=== PATIENT | female | born 1945 | race Caucasian/White ===

== ENCOUNTER 2022-11-27 10:01 | Outpatient (OUT) | payer MEDICARE, BC, SELFPAY ==
--- NOTE | 2022-11-27 10:15 | MM_ITS ---
Patient: LUCY ALBRIGHT Exam Date: 11/27/2022 : 1945 Gender:F Ordering : Non-Staff Physician Admission #: [id number] Family : BAMBI RONDON Order #: [id number] CLICK HERE TO VIEW EXAM RADIOLOGY REPORT PROCEDURE: MM TOMOSYNTHESIS SCREENING RT COMPARISON: MG MAMM SCREEN RT 3D CAD, 11/18/2020. MG MAMM SCREEN RT 3D CAD, 11/24/2021. INDICATIONS: PERSONAL HISTORY OF MALIGNANY NEOPLASM OF BREAST Z85.3 Calculator Name NCI Breast Cancer Risk Assessment Tool 5 Year Breast Cancer Risk n/a% Lifetime Breast Cancer Risk n/a% Personal Breast Cancer Yes, 67 Personal Ovarian Cancer No Treatments mastectomy Family Cancers Sister with breast cancer at age 62; Son with kidney cancer at age 4. LOCATION: [facility] BREAST COMPOSITION: Heterogeneously dense,which may obscure small masses. FINDINGS: DIAGNOSTIC CATEGORY 2--BENIGN FINDING: RIGHT BREAST: No significant suspicious finding. Scattered benign-appearing nodules are present. Scattered benign-appearing calcifications are present. Scattered benign-appearing lymph nodes are present. RECOMMENDATIONS: ROUTINE MAMMOGRAM AND CLINICAL EVALUATION IN 12 MONTHS. PLEASE NOTE: A NORMAL MAMMOGRAM DOES NOT EXCLUDE THE POSSIBILITY OF BREAST CANCER. A CLINICALLY SUSPICIOUS PALPABLE LUMP SHOULD BE BIOPSIED. Dictated by: Vernon Goncalves MD on 11/27/2022 at 14:09 Approved by: Vernon Goncalves MD on 11/27/2022 at 14:10
== END 2022-11-27 10:02 | disposition home or self-care (01) ==
LOC: MAMMO 10:06
PROVIDERS: PCP Family Medicine
DX: Z12.31 Encounter for screening mammogram for malignant neoplasm of breast (principal); Z80.3 Family history of malignant neoplasm of breast; Z90.12 Acquired absence of left breast and nipple; Z80.51 Family history of malignant neoplasm of kidney
CPT/HCPCS: 77063; 77067

== ENCOUNTER 2022-12-25 08:50 | Outpatient (OUT) | payer MEDICARE, BC, SELFPAY ==
[2022-12-25 09:27] LABS: Estimated GFR (African America 46 (>=60); Estimated GFR (Non-African Ame 38 (>=60)
--- NOTE | 2022-12-25 11:20 | CT_ITS ---
The [address] [address] Patient Name: LUCY ALBRIGHT MRN: [id number] date: 1945 Sex: F Assigned Patient Location: LAB Current Patient Location: LAB Accession/Order Number: [id number] Exam Date: 12/25/2022 10:54 Report Date: 12/25/2022 12:21 At the request of: NON-STAFF PHYSICIAN Procedure: CT abdomen pelvis w con CT abdomen pelvis w con, 12/25/2022 10:54 AM EST INDICATION: Disorder Of Urinary System N39.9 COMPARISON: There is no appropriate prior study for comparison. TECHNIQUE: Axial images of the abdomen were obtained after the administration of IV and oral contrast. Multiplanar reformatted images were generated and reviewed as needed. Dose reduction techniques were achieved by using automated exposure control and/or adjustment of mA and/or kV according to patient size and/or use of iterative reconstruction technique. FINDINGS: There is status post bilateral hip arthroplasty causing streak artifact that decreases the sensitivity of this study. Lungs: The base of lungs is clear. No pleural effusion is noted. Liver and gallbladder: Small low-attenuation lesion within the liver likely a cyst or hemangioma. Otherwise, the liver and gallbladder are unremarkable. No enlargement of intra or extrahepatic biliary ducts. Genitourinary system: No hydronephrosis. No nephrolithiasis. Bilateral hypodense lesions within the kidneys, not fully characterized by this study. No abnormality of the visualized portion of urinary bladder is noted. Other solid abdominal organs: adrenal glands, pancreas, and spleen are unremarkable. Aorta: The infrarenal abdominal aorta is nonaneurysmal. Free fluid: There is no free fluid in the abdomen pelvis. Lymph node: No lymph node enlargement by size criteria is noted. Stomach and Bowel: No abnormality of the stomach is noted. There is colonic diverticulosis. No abnormality of small bowel is noted. Bone: There is no suspicious osteolytic or osteoblastic lesion. There is diffuse demineralization of bone. Lower lumbar spine and SI joint degenerative changes are noted. CT/CT abdomen pelvis w con IMPRESSION: No abnormality within the kidneys and the visualized portion of the urinary bladder (giving the limitation of the streak artifact) is noted to explain patient's symptoms. Electronically authenticated by: BROOKS KENDRICK Date: 12/25/2022 12:21
== END 2022-12-25 08:51 | disposition home or self-care (01) ==
LOC: LAB 08:50
PROVIDERS: PCP Family Medicine
DX: N39.9 Disorder of urinary system, unspecified (principal)
CPT/HCPCS: 36415; 74177; 82565; 84520; Q9967

== ENCOUNTER 2023-11-29 10:20 | Outpatient (OUT) | payer MEDICARE, SELFPAY ==
--- NOTE | 2023-11-29 10:31 | MM_ITS ---
Patient Name: LUCY ALBRIGHT MR#: [id number] : 1945 Exam Date: 11/29/2023 Ordering Doctor: DR SHARA OWENS RADIOLOGY REPORT PROCEDURE: MM TOMOSYNTHESIS SCREENING RT COMPARISON: MM TOMOSYNTHESIS SCREENING RT, 11/27/2022. MG MAMM SCREEN RT 3D CAD, 11/24/2021. MG MAMM SCREEN RT 3D CAD, 11/18/2020. INDICATIONS: Screening Calculator Name NCI Breast Cancer Risk Assessment Tool 5 Year Breast Cancer Risk n/a% Lifetime Breast Cancer Risk n/a% Personal Breast Cancer Yes, 67 Personal Ovarian Cancer No Treatments mastectomy Family Cancers Sister with breast cancer at age 62; Son with kidney cancer at age 4. LOCATION: [facility] BREAST COMPOSITION: The breasts are heterogeneously dense,which may obscure small masses. FINDINGS: DIAGNOSTIC CATEGORY 2--BENIGN FINDING: RIGHT BREAST: No significant suspicious finding. Scattered benign-appearing nodules are present. Scattered benign-appearing calcifications are present. No significant change has occurred. RECOMMENDATIONS: ROUTINE MAMMOGRAM AND CLINICAL EVALUATION IN 12 MONTHS. PLEASE NOTE: A NORMAL MAMMOGRAM DOES NOT EXCLUDE THE POSSIBILITY OF BREAST CANCER. A CLINICALLY SUSPICIOUS PALPABLE LUMP SHOULD BE BIOPSIED. Dictated by: Josesito Santiago M.D. on 11/29/2023 at 15:37 Approved by: Josesito Santiago M.D. on 11/29/2023 at 15:39
== END 2023-11-29 10:21 | disposition home or self-care (01) ==
LOC: MAMMO 10:24
PROVIDERS: PCP Family Medicine; Visit Provider Family Medicine
DX: Z12.31 Encounter for screening mammogram for malignant neoplasm of breast (principal); Z80.3 Family history of malignant neoplasm of breast; Z80.51 Family history of malignant neoplasm of kidney
CPT/HCPCS: 77063; 77067

== ENCOUNTER 2024-12-01 11:28 | Outpatient (OUT) | payer MEDICARE, SELFPAY ==
--- OUTSIDE RECORDS SUMMARY | 2024-12-01 11:34 | XMS_ITS | CCD ---
Author Organization [facility] Care Team Providers Care Residential Door Unit Installer Name Role Phone SHARA MOCK Unavailable Unavailable HYSHARA CLAROS Unavailable Unavailable DEFRANCE, SHARA Unavailable Unavailable FCO SANTIAGO Unavailable Unavailable SHARA MOCK Unavailable Unavailable Angelorance , Shara Choi Primary Care Provider [phone] Shara Montesinos MD Primary Care Provider Shara Montesinso MD Primary Care Provider Harshad Zapata MD Primary Care Provider [phone] HARSHAD ZAPATA Attending Unavailable SHARA MONTESINOS Referring Unavailable HARSHAD ZAPATA Primary Care Unavailable ANGELORANCESHARA Attending Unavailable DEFRANCESHARA Referring Unavailable DEFRANCE, SHARA Choi Primary Care Unavailable MAY KANG I Attending Unavailable DEFRANCESHARA Referring Unavailable DEFRANCE, SHARA Choi Primary Care Unavailable MAY KANG I Referring Unavailable DEFRANCE, SHARA Choi Primary Care Unavailable ALBERTO, ISA Admitting Unavailable ALBERTO, ISA Attending Unavailable DEFRANCE, SHARA Choi Primary Care Unavailable KARINA SALAZAR Attending Unavailable ANGELORANCESHARA Primary Care Unavailable ISA MERCADO Attending Unavailable SHARA MONTESINOS Referring Unavailable HARSHAD ZAPATA Primary Care Unavailable DEFRANCESHARA Referring Unavailable DEFRANCE, SHARA Choi Primary Care Unavailable SHARA EDWARD Referring Unavailable DEFRANCE, SHARA Choi Primary Care Unavailable SHARA EDWARD Attending Unavailable SHARA EDWARD Referring Unavailable DEFRANCE, SHARA Choi Primary Care Unavailable DEFRANCE, SHARA Choi Referring Unavailable DEFRANCE, SHARA Choi Primary Care Unavailable WILMAR SOLO Admitting Unavailable WILMAR SOLO Attending Unavailable ANGELORANCE, SHARA Choi Primary Care Unavailable SWATHI ROY Attending Unavailable ANGELORANCE, SHARA Choi Primary Care Unavailable ALBERTO, ISA Attending Unavailable ANGELORANCE, SHARA Choi Referring Unavailable DEFRANCE, SHARA Choi Primary Care Unavailable AGA HOANG Referring Unavailable DEFRANCE, SHARA Choi Primary Care Unavailable WILMAR SOLO Referring Unavailable DEFRANCE, SHARA Choi Primary Care Unavailable ISA MERCADO Attending Unavailable ISA MERCADO Referring Unavailable DEFRANCE, SHARA Choi Primary Care Unavailable DEFRANCE, SHARA Jimbo Referring Unavailable DEFRANCE, SHARA Jimbo Primary Care Unavailable HOANGAGA Referring Unavailable DEFRANCE, SHARA Jimbo Primary Care Unavailable HENRY SIMMONS Referring Unavailable BENNY, HARSHAD Primary Care Unavailable MIKELNADIA Attending Unavailable BENNY, HARSHAD Referring Unavailable BENNY, HARSHAD Primary Care Unavailable Medications Current Medications Medication Drug Class(es) Dates Sig (Normalized) Sig (Original) allopurinol 100 mg oral tablet (20 sources) Xanthine Oxidase Inhibitor Start: 01-02-2024 End: 06-30-2024 take 1 tablet by mouth once daily in the morning allopurinoL (ZYLOPRIM) 100 mg tablet Indications: Essential hypertension, benign , Diabetes mellitus without complication ([facility]) , Acquired hypothyroidism TAKE 1 TABLET BY MOUTH EVERY MORNING 90 tablet 1 06/30/2024 Active amoxicillin 500 mg oral capsule (1 source) Penicillin-class Antibacterial Start: 11-26-2024 take 1 capsule by mouth three times daily amoxicillin (AMOXIL) 500 mg capsule Take 1 capsule (500 mg total) by mouth 3 (three) times a day. 11/26/2024 Active apixaban 5 mg oral tablet (20 sources) Factor Xa Inhibitor Start: 08-15-2023 End: 08-15-2024 take 1 tablet by mouth at bedtime, then take 1 tablet by mouth twice daily at bedtime apixaban (ELIQUIS) 5 mg tablet Indications: Paroxysmal atrial fibrillation ([facility]) Take 1 tablet (5 mg total) by mouth in the morning and at bedtime. TAKE 1 TABLET BY MOUTH 2 TIMES A DAY (MORNING AND BEFORE BEDTIME) 180 tablet 1 08/15/2024 Active bisoprolol fumarate 5 mg oral tablet (20 sources) beta-Adrenergic Tone Start: 06-25-2023 End: 08-05-2024 take 1 tablet by mouth once daily in the morning, then take 1 tablet by mouth once daily at bedtime bisoprolol (ZEBETA) 5 mg tablet TAKE 1 TABLET BY MOUTH EVERY MORNING AND TAKE 1 TABLET BY MOUTH EVERY NIGHT AT BEDTIME 180 tablet 1 08/05/2024 Active blood-glucose meter misc (20 sources) Start: 03-15-2017 blood-glucose meter misc One Touch Glucometer, Use daily, Diagnosis: E11.9 1 each 03/15/2017 Active calcium carbonate 1500 mg / cholecalciferol 200 unt oral capsule (20 sources) Vitamin D take 2 capsules by mouth twice daily in the morning calcium carbonate-vitamin D3 600 mg calcium- 200 unit capsule Take 2 capsules by mouth in the morning. Takes 1200mg bid. Active take 2 capsules by mouth once da dennise calcium carbonate-vitamin D3 600 mg calcium- 200 unit capsule Take 2 capsules by mouth daily. Takes 1200mg bid Active cefadroxil 500 mg oral capsule (9 sources) Cephalosporin Antibacterial Start: 05-21-2024 End: 05-28-2024 take 1 capsule by mouth in the morning, then take 1 capsule by mouth at bedtime cefaDROXil (DURICEF) 500 mg capsule Take 1 capsule (500 mg total) by mouth in the morning and 1 capsule (500 mg total) before bedtime. Do all this for 7 days. 14 capsule 05/21/2024 05/28/2024 Active Start: 04-25-2024 End: 05-05-2024 take 1 capsule by mouth in the morning, then take 1 capsule by mouth at bedtime cefaDROXil (DURICEF) 500 mg capsule Take 1 capsule (500 mg total) by mouth in the morning and 1 capsule (500 mg total) before bedtime. Do all this for 10 days. 20 capsule 04/25/2024 05/05/2024 Active Start: 03-03-2024 End: 03-10-2024 take 1 capsule by mouth in the morning, then take 1 capsule by mouth at bedtime cefaDROXil (DURICEF) 500 mg capsule Take 1 capsule (500 mg total) by mouth in the morning and 1 capsule (500 mg total) before bedtime. Do all this for 7 days. 14 capsule 03/03/2024 03/10/2024 Active cefdinir 300 mg oral capsule (5 sources) Cephalosporin Antibacterial Start: 05-19-2024 End: 05-29-2024 take 1 capsule by mouth in the morning, then take 1 capsule by mouth at bedtime cefDINIR (OMNICEF) 300 mg capsule Take 1 capsule (300 mg total) by mouth in the morning and 1 capsule (300 mg total) before bedtime. Do all this for 10 days. 20 capsule 05/19/2024 05/29/2024 Active CRANBERRY JUICE ORAL (18 sources) CRANBERRY JUICE ORAL Take by mouth as needed. Active furosemide 20 mg oral tablet (20 sources) Loop Diuretic Start: 04-04-2023 End: 04-02-2024 take 1 tablet by mouth once daily furosemide (LASIX) 20 mg tablet Indications: Essential hypertension, benign Take 1 tablet (20 mg total) by mouth daily. 90 tablet 3 04/02/2024 Active glimepiride 1 mg oral tablet (20 sources) Sulfonylurea Start: 03-06-2023 take 1 tablet by mouth once daily before breakfast, then take 1 tablet by mouth once daily in the morning, then take 1 tablet by mouth once daily at bedtime glimepiride (AMARYL) 1 mg tablet Take 1 tablet (1 mg total) by mouth every morning before breakfast. TAKE ONE TABLET BY MOUTH EVERY MORNING AND TAKE ONE TABLET BY MOUTH EVERY NIGHT BEFORE BEDTIME 180 tablet 3 03/04/2024 Active levothyroxine sodium 0.125 mg oral tablet (20 sources) l-Thyroxine Start: 08-01-2023 End: 04-30-2024 take 1 tablet by mouth in the morning levothyroxine (SYNTHROID, LEVOTHROID) 125 MCG tablet Take 1 tablet (125 mcg total) by mouth in the morning. 90 tablet 2 04/30/2024 Active MAGNESIUM OXIDE/MAG AA CHELATE (MAGNESIUM, OXIDE/AA CHELATE, ORAL) (20 sources) take 400 mg by mouth in the morning MAGNESIUM OXIDE/MAG AA CHELATE (MAGNESIUM, OXIDE/AA CHELATE, ORAL) Take 400 mg by mouth in the morning and 400 mg before bedtime. Active take 400 mg by mouth twice daily MAGNESIUM OXIDE/MAG AA CHELATE (MAGNESIUM, OXIDE/AA CHELATE, ORAL) Take 400 mg by mouth 2 (two) times a day. Active metFORMIN hydrochloride 1000 mg oral tablet (20 sources) Biguanide Start: 03-06-2023 End: 03-10-2024 take 1 tablet by mouth in the morning, then take 1 tablet by mouth at mealtime, then take 1 tablet by mouth once daily in the morning, then take 1 tablet by mouth once daily at bedtime metFORMIN (GLUCOPHAGE) 1000 mg tablet Take 1 tablet (1,000 mg total) by mouth in the morning and 1 tablet (1,000 mg total) in the evening. Take with meals. TAKE ONE TABLET BY MOUTH EVERY MORNING AND TAKE ONE TABLET BY MOUTH EVERY NIGHT BEFORE BEDTIME. 180 tablet 3 03/10/2024 Active methenamine hippurate 1000 mg oral tablet (20 sources) Start: 04-25-2024 End: 04-20-2025 take 1 tablet by mouth at bedtime methenamine (HIPREX) 1 gram tablet Take 1 tablet (1 g total) by mouth in the morning and 1 tablet (1 g total) before bedtime. Do all this for 360 days. 180 tablet 3 04/25/2024 04/20/2025 Active MULTIVIT-MINERALS/MEHREEN JASON FUM (MULTI VITAMIN ORAL) (20 sources) Start: 08-15-2011 take 1 tablet by mouth in the morning MULTIVIT-MINERALS/F ERROUS FUM (MULTI VITAMIN ORAL) Take 1 tablet by mouth in the morning. 08/15/2011 Active Start: 08-15-[address] [facility] once daily MULTIVIT-MINERALS/FERROUS FUM (MULTI VITAMIN ORAL) Take 1 tablet by mouth daily. 08/15/2011 Active omeprazole 20 mg delayed release oral capsule (20 sources) Proton Pump Inhibitor Start: 11-29-2022 take 1 capsule by mouth once daily in the morning omeprazole (PriLOSEC) 20 mg capsule Indications: Gastroesophageal reflux disease without esophagitis TAKE ONE CAPSULE BY MOUTH EVERY MORNING 90 capsule 3 03/04/2024 Active pregabalin 100 mg oral capsule (20 sources) Start: 11-24-2024 take 1 capsule by mouth twice daily at bedtime pregabalin (LYRICA) 100 mg capsule Indications: Diabetic polyneuropathy associated with type 2 diabetes mellitus ([facility]-HCC) TAKE 1 CAPSULE BY MOUTH 2 TIMES A DAY IN THE MORNING AND BEFORE BEDTIME 60 capsule 11/24/2024 Active Start: 01-23-2024 End: 11-24-2024 take 1 capsule by mouth in the morning, then take 1 capsule by mouth at bedtime pregabalin (LYRICA) 100 mg capsule Indications: Diabetic polyneuropathy associated with type 2 diabetes mellitus ([facility]-HCC) Take 1 capsule (100 mg total) by mouth in the morning and 1 capsule (100 mg total) before bedtime. 60 capsule 10/27/2024 11/24/2024 Discontinued Completed/Discontinued Medications Medication Drug Class(es) Dates Sig (Normalized) Sig (Original) ferrous sulfate (20 sources) End: 06-25-2024 take 65 mg by mouth once daily FERROUS SULFATE ORAL Take 65 mg by mouth daily. 06/25/2024 Discontinued (Patient Stopped On Own) take 65 mg by mouth once daily F ERROUS SULFATE ORAL Take 65 mg by mouth daily. Active lisinopril 5 mg oral tablet (20 sources) Angiotensin Converting Enzyme Inhibitor Start: 04-11-2023 End: 08-26-2024 take 1 tablet by mouth once daily in the morning lisinopriL (PRINIVIL,ZESTRIL) 5 mg tablet TAKE 1 TABLET BY MOUTH EVERY MORNING 90 tablet 08/04/2024 08/26/2024 Discontinued Problems Active Problems Problem Classification Problem Date Documented Da te Episodic/Chronic Cardiac dysrhythmias (20 sources) Paroxysmal atrial fibrillation; Translations: [Paroxysmal atrial fibrillation] Onset: 6 01-30-2024 Chronic Diabetes mellitus with complications (20 sources) Polyneuropathy due to type 2 diabetes mellitus; Translations: [Type 2 diabetes mellitus with diabetic polyneuropathy] Onset: 8 02-27-2024 Chronic Esophageal disorders (20 sources) Gastroesophageal reflux disease; Translations: [Gastro-esophageal reflux disease without esophagitis] Onset: 1 11-01-2020 Chronic Essential hypertension (20 sources) Essential hypertension; Translations: [Essential (primary) hypertension] Onset: 8 08-20-2020 Chronic Other diseases of bladder and urethra (20 sources) Overactive bladder; Translations: [Overactive bladder] Onset: 1 10-31-2023 Chronic Other diseases of veins and lymphatics (20 sources) Venous hypertension; Translations: [Chronic venous hypertension (idiopathic) without complications of unspecified lower extremity] Onset: 2 05-23-2021 Chronic Other gastrointestinal disorders (4 sources) Diarrhea, unspecified; Translations: [DIARRHEA UNSPECIFIED] Onset: 8 Episodic Other lower respiratory disease (2 sources) Dyspnea on exertion; Translations: [Other forms of dyspnea] 11-27-2024 Episodic Other lower respiratory disease (1 source) Other forms of dyspnea; Translations: [Other forms of dyspnea] Onset: 5 Episodic Other nervous system disorders (20 sources) Mononeuropathy of lower limb; Translations: [Other specified mononeuropathies of bilateral lower limbs] Onset: 3 05-24-2023 Chronic Other nutritional; endocrine; and metabolic disorders (20 sources) Body mass index 30+ - obesity; Translations: [Obesity, unspecified] Onset: 1 05-20-2020 Chronic Other upper respiratory disease (20 sources) Rhinitis; Translations: [Chronic rhinitis] Onset: 2 05-30-2021 Chronic Prolapse of female genital organs (20 sources) Midline cystocele; Translations: [Cystocele, midline] Onset: 7 08-01-2019 Chronic Spondylosis; intervertebral disc disorders; other back problems (20 sources) Bilateral inflammation of sacroiliac joint; Translations: [Sacroiliitis, not elsewhere classified] Onset: 4 12-20-2023 Chronic Thyroid disorders (20 sources) Acquired hypothyroidism; Translations: [Hypothyroidism, unspecified] Onset: 8 03-15-2017 Chronic Unclassified (1 source) Ventricular tachycardia, unspecified; Translations: [Ventricular tachycardia, unspecified] Onset: 1 Unclassified (1 source) Annual Exam Onset: 4 Unclassified (1 source) i48.0 Onset: 5 Unclassified (1 source) Pre-op Exam Onset: 5 Urinary tract infections (1 source) Urinary tract infections Onset: 4 Past or Other Problems Problem Classification Problem Date Documented Da te Episodic/Chronic Diabetes mellitus without complication (20 sources) Diabetes mellitus without complication; Translations: [Type 2 diabetes mellitus without complications] Onset: 03-15-2017 Resolved: 03-15-2017 03-15-2017 Chronic Genitourinary symptoms and ill-defined conditions (2 sources) Scalding pain on urination ; Translations: [Dysuria] Onset: 03-03-2024 03-03-2024 Episodic Mood disorders (20 sources) Mood disorders Onset: 12-20-2023 Resolved: 06-25-2024 12-20-2023 Other and unspecified benign neoplasm (20 sources) History of polyp of colon; Translations: [History of colon polyps] Onset: 12-18-2018 12-18-2018 Episodic Other diseases of bladder and urethra (20 sources) Urethral stricture; Translations: [Unspecified urethral stricture, male, unspecified site] Onset: 04-05-2016 08-29-2019 Episodic Other gastrointestinal disorders (20 sources) Diarrhea; Translations: [Diarrhea, unspecified] Onset: 12-18-2018 12-18-2018 Episodic Other lower respiratory disease (20 sources) Dyspnea; Translations: [Shortness of breath] Onset: 08-20-2020 08-20-2020 Episodic Pancreatic disorders (not diabetes) (20 sources) Exocrine pancreatic insufficiency; Translations: [Exocrine pancreatic insufficiency] Onset: 01-28-2018 Resolved: 12-18-2018 12-18-2018 Episodic Spondylosis; intervertebral disc disorders; other back problems (20 sources) Disorder of sacrum; Translations: [Sacrococcygeal disorders, not elsewhere classified] Onset: 10-13-2021 08-24-2022 Episodic Unclassified (20 sources) Onset: 12-18-2022 12-18-2022 Urinary tract infections (20 sources) Recurrent urinary tract infection; Translations: [Urinary tract infection, site not specified] Onset: 04-05-2016 11-19-2023 Episodic Varicose veins of lower extremity (20 sources) Varicose veins of lower extremity; Translations: [Varicose veins of bilateral lower extremities with pain] Onset: 05-23-2021 05-23-2021 Episodic Results Test Name Value Interpretation Reference Range Facil ity POCT EKGOrdered By: Alcira Schumacher on 11-27-2024 [facility] POCT EKGon 08-26-2024 [facility] ACT Kaolin induced method (B ld)on 05-22-2024 [facility] CLOT TIME 279 sec High 96-152 [facility] Comment on above: Performed By: #### 8 0659-6 #### [facility] ([id number]) [address] [place] [address] [facility] CLOT TIME 348 sec High 96-152 [facility] Comment on above: Performed By: #### 8 0659-6 #### [facility] ([id number]) [address] [facility] [place] [address] [facility] CLOT TIME 354 sec High 96-152 [facility] Comment on above: Performed By: #### 8 0659-6 #### [facility] ([id number]) [address] [facility] [place] [address] [facility] CLOT TIME 333 sec High 96-152 [facility] Comment on above: Performed By: #### 8 0659-6 #### [facility] ([id number]) [address] [place] [address] [facility]CHRN CLOT TIME 138 sec Normal 96-152 [facility] Comment on above: Performed By: #### 8 0659-6 #### [facility] ([id number]) [address] [place] [address] Glucose Glucometer (BldC) [M ass/Vol]on 05-22-2024 Glucose [Mass/Vol] 126 mg/dL High 65-99 [facility] URINALYSISon 05-19-2024 Bilirubin Ql (U) Negative Normal NEG [facility] Comment on above: Performed By: #### B MP #### [facility] ([id number]) [address] [place] [address] BLOOD/HGB Small Abnormal NEG [facility] Comment on above: Performed By: #### B MP #### [facility] ([id number]) [address] [place] [address] Color (U) YELLOW Normal YELLOW [facility] Comment on above: Performed By: #### B MP #### [facility] ([id number]) [address] [place] [address] Glucose Ql (U) Negative Normal NEG [facility] Comment on above: Performed By: #### B MP #### [facility] ([id number]) [address] [place] [address] Ketones Ql (U) Negative Normal NEG [facility] Comment on above: Performed By: #### B MP #### [facility] ([id number]) [address] [place] [address] Leukocyte esterase Test strip Ql (U) Large Abnormal NEG [facility] Comment on above: Performed By: #### B MP #### [facility] ([id number]) [address] [place] [address] Nitrite Ql (U) Positive Abnormal NEG [facility] Comment on above: Performed By: #### B MP #### [facility] ([id number]) [address], [address] [place] [address] pH (U) 6.5 [pH] Normal 5.0-8.5 [facility] Comment on above: Performed By: #### B MP #### [facility] ([id number]) [address] [place] [address] Protein Ql (U) Trace Abnormal NEG [facility] Comment on above: Performed By: #### B MP #### [facility] ([id number]) [address] [place] [address] R.B.CELLS 36 /hpf High 0-5 [facility] Comment on above: Performed By: #### B MP #### [facility] ([id number]) [address] [place] [address] Specific gravity (U) [Rel density] 1.012 Normal 1.003-1.035 [facility] Comment on above: Performed By: #### B MP #### [facility] ([id number]) [address] [place] [address] TURBIDITY CLOUDY Abnormal CLEAR [facility] Comment on above: Performed By: #### B MP #### [facility] ([id number]) [address] [place] [address] Urobilinogen (U) [Mass/Vol] mg/dL Normal <1.1 [facility] Comment on above: Performed By: #### B MP #### [facility] ([id number]) [address] [place] [address] W.B.CELLS >720 High 0-5 [facility] Comment on above: Performed By: #### B MP #### [facility] ([id number]) [address] [address] WBC CLUMPS FEW Abnormal NONE [facility] Comment on above: Performed By: #### B MP #### [facility] ([id number]) [address] [place] [address] URINE CULTUREon 05-19-2024 Bacteria identified Cx Nom (U) CULTURE RESULTS >100,000 ORGANISMS/mL ESCHERICHIA COLI <10,000 ORGANISMS/mL NORMAL URO GENITAL RAHAT [ S = SUSCEPTIBLE R = RESISTANT I = INTERMEDIATE S-DO = Susceptible-dose dependent NS = Non-suscceptible NO = No Interpretation ] Organism: ESCHERICHIA COLI Antibiotic Interpretation JAVON Status AMPICILLIN S <=2 F AMP/SULBACTAM S <=2/1 F CEFAZOLIN (non urinary) S 2 F CEFAZOLIN (urinary) S 2 F CEFTRIAXONE S <=0.25 F CIPROFLOXACIN R >=4 F GENTAMICIN S <=1 F LEVOFLOXACIN R >=8 F NITROFURANTOIN S <=16 F PIPERACIL/TAZOBACTAM S <=4 F TRIMETH/SULFAMETHOXA ZOLE S <=1/19 F Susceptible [facility] Comment on above: Performed By: #### B MP #### [facility] ([id number]) [address] [place] [address] Urinalysison 05-19-2024 Bilirubin Ql (U) Negative Negative^Ne gati ve [facility] Color (U) YELLOW YELLOW^YELLOW [facility] Glucose (U) [Mass/Vol] Negative Negative^Negati ve mg/dL [facility] Hemoglobin Auto test strip Ql (U) Small Abnormal Negative^Negati ve [facility] Interpretation and review of laboratory results Abnormal [facility] Ketones (U) [Mass/Vol] Negative Negative^Negati ve mg/dL [facility] Leukocyte clumps LM Ql (Urine sed) FEW Abnormal NONE^NONE [facility] Leukocyte esterase Auto test strip Ql (U) Large Abnormal Negative^Negati ve [facility] Nitrite Auto test strip Ql (U) Positive Abnormal Negative^Negati ve [facility] pH (U) 6.5 [pH] 5.0 - 8.5 [facility] Protein (U) [Mass/Vol] Trace Abnormal Negative^Negati ve mg/dL [facility] RBC Auto (Urine sed) [#/Area] 36 High [facility] Specific gravity Refractometry automated (U) [Rel density] 1.012 1.003 - 1.035 [facility] Turbidity Ql (U) CLOUDY Abnormal CLEAR^CLEAR [facility] Urobilinogen Qn (U) NINF [facility] WBC Auto (Urine sed) [#/Area] High [facility] BASIC METABOLIC PANLon 05-15 Anion gap [Moles/Vol] 10 mmol/L Normal 5-15 [facility] Comment on above: Performed By: #### C SHO VENEGAS, #### [facility] ([id number]) [address] [place] [address] Calcium [Mass/Vol] 9.6 mg/dL Normal 8.5-10.5 [facility] Comment on above: Performed By: #### C SHO VENEGAS, 13784-5 #### [facility] ([id number]) [address] [place] [address] Chloride [Moles/Vol] 97 mmol/L Low 98-109 [facility] Comment on above: Performed By: #### C SHO VENEGAS, #### [facility] ([id number]) [address] [place] [address] CO2 [Moles/Vol] 30 mmol/L Normal 22-32 [facility] Comment on above: Performed By: #### C SHO VENEGAS, #### [facility] ([id number]) [address] [place] [address] Creatinine [Mass/Vol] 1.02 mg/dL High 0.40-1.00 [facility] Comment on above: Result Comment: METH OD TRACEABLE TO IDMS STANDARD Performed By: #### C SHO VENEGAS, #### [facility] ([id number]) [address] [place] [address] GFR/1.73 sq M.predicted among non-blacks MDRD (S/P/Bld) [Vol rate/Area] 57 mL/min/{1.73_m2} Low >59 [facility] Comment on above: Result Comment: Reported eGFR is based on the CKD-EPI 2020 equation that does not use a race coefficient. Performed By: #### C SHO VENEGAS, #### [facility] ([id number]) [address] [place] [address] Glucose [Mass/Vol] 159 mg/dL High 65-99 [facility] Comment on above: Performed By: #### C SHO VENEGAS, #### [facility] ([id number]) [address] [place] [address] Potassium [Moles/Vol] 4.1 mmol/L Normal 3.5-5.0 [facility] Comment on above: Performed By: #### C SHO VENEGAS, #### [facility] ([id number]) [address], [address] [place] [address] Sodium [Moles/Vol] 137 mmol/L Normal 134-146 [facility] Comment on above: Performed By: #### SHO Hernandez BCA, #### [facility] ([id number]) [address], [facility] [address] [place] [address] Urea nitrogen [Mass/Vol] 17 mg/dL Normal 5-27 [facility] Comment on above: Performed By: #### SHO Hernandez BCA, #### [facility] ([id number]) [address], [facility] [address] [place] [address] CBC AND AUTO DIFFon 05-16-19 25 ABSOLUTE BASOPHIL 0.1 X10E9/L Normal 0.0-0.2 [facility] Comment on above: Performed By: #### SHO Hernandez BCA, #### [facility] ([id number]) [address], [facility] [address] [place] [address] ABSOLUTE NEUTROPHIL 3.2 X10E9/L Normal 1.5-6.6 [facility] Comment on above: Performed By: #### SHO Hernandez BCA, #### [facility] ([id number]) [address] [address] [place] [address] Basophils/100 WBC (Bld) 1.1 % Normal [facility] Comment on above: Performed By: #### SHO Hernandez BCA, #### [facility] ([id number]) [address] [address] [place] [address] Eosinophils (Bld) [#/Vol] 0.1 10*3/uL Normal 0.0-0.4 [facility] Comment on above: Performed By: #### SHO Hernandez BCA, #### [facility] ([id number]) [address], [address] [place] [address] Eosinophils/100 WBC (Bld) 3.0 % Normal [facility] Comment on above: Performed By: #### Mary VENEGAS [facility], #### [facility] ([id number]) [address], [address] [place] [address] Erythrocyte distribution width (RBC) [Ratio] 14.2 % Normal 11.5-15.0 [facility] Comment on above: Performed By: #### SHO Hernandez BCA, #### [facility] ([id number]) [address], [address] [place] [address] Hematocrit (Bld) [Volume fraction] 39.0 % Normal 35-47 [facility] Comment on above: Performed By: #### SHO Hernandez BCA, #### [facility] ([id number]) [address], [address] [place] [address] Hemoglobin (Bld) [Mass/Vol] 12.9 g/dL Normal 11.7-15.5 [facility] Comment on above: Performed By: #### SHO Hernandez BCA, #### [facility] ([id number]) [address], [address] [place] [address] Lymphocytes (Bld) [#/Vol] 0.9 10*3/uL Low 1.0-3.5 [facility] Comment on above: Performed By: #### SHO Hernandez BCA, #### [facility] ([id number]) [address], [address] [place] [address] Lymphocytes/100 WBC (Bld) 19.7 % Normal [facility] Comment on above: Performed By: #### SHO Hernandez BCA, #### [facility] ([id number]) [address], [address] [place] [address] MCH (RBC) [Entitic mass] 31.2 pg Normal 27-34 [facility] Comment on above: Performed By: #### C RUBI [facility], #### [facility] ([id number]) [address], [address] [place] [address] MCHC (RBC) [Mass/Vol] 33.2 g/dL Normal 32-36 [facility] Comment on above: Performed By: #### Mary VENEGAS, BMP, #### [facility] ([id number]) [address], [address] [place] [address] MCV (RBC) [Entitic vol] 94 fL Normal 80-100 [facility] Comment on above: Performed By: #### Mary VENEGAS, BMP, #### [facility] ([id number]) [address], [address] [place] [address] Monocytes (Bld) [#/Vol] 0.4 10*3/uL Normal 0-0.9 [facility] Comment on above: Performed By: #### Mary VENEGAS, [facility], #### [facility] ([id number]) [address], [address] [place] [address] Monocytes/100 WBC (Bld) 8.8 % Normal [facility] Comment on above: Performed By: #### Mary VENEGAS, BMP, #### [facility] ([id number]) [address], [address] [place] [address] Neutrophils/100 WBC (Bld) 67.4 % Normal [facility] Comment on above: Performed By: #### Mary VENEGAS, BMP, #### [facility] ([id number]) [address], [address] [place] [address] Platelet mean volume (Bld) [Entitic vol] 10.8 fL Normal 7-12 [facility] Comment on above: Performed By: #### Mary VENEGAS, BMP, #### [facility] ([id number]) [address], [address] [place] [address] Platelets (Bld) [#/Vol] 175 10*3/uL Normal 150-450 [facility] Comment on above: Performed By: #### SHO Hernandez BCA, 39286-2 #### [facility] ([id number]) [address], [facility] [address] [place] [address] RBC COUNT 4.14 X10E12/L Normal 3.80-5.20 [facility] Comment on above: Performed By: #### SHO Hernandez BCA, 16646-4 #### [facility] ([id number]) [address], [facility] [address] [place] [address] WBC (Bld) [#/Vol] 4.7 10*3/uL Normal 4.0-11.0 [facility] Comment on above: Performed By: #### SHO Hernandez BCA, 74349-6 #### [facility] ([id number]) [address], [address] [place] [address] MAGNESIUMon 05-15-2024 Magnesium [Mass/Vol] 1.4 mg/dL Low 1.8-2.6 [facility] Comment on above: Performed By: #### SHO Hernandez BCA, 59601-0 #### [facility] ([id number]) [address], [facility] [address] [place] [address] URINE CULTUREon 04-22-2024 Bacteria identified Cx Nom (U) CULTURE RESULTS >100,000 ORGANISMS/mL ESCHERICHIA COLI [ S = SUSCEPTIBLE R = RESISTANT I = INTERMEDIATE S-DO = Susceptible-dose dependent NS = Non-suscceptible NO = No Interpretation ] Organism: ESCHERICHIA COLI Antibiotic Interpretation JAVON Status AMPICILLIN S <=2 F AMP/SULBACTAM S <=2/1 F CEFAZOLIN S <=4 F CEFTRIAXONE S <=0.25 F CIPROFLOXACIN R >=4 F GENTAMICIN S <=1 F LEVOFLOXACIN R >=8 F NITROFURANTOIN S <=16 F PIPERACIL/TAZOBACTAM S <=4 F TOBRAMYCIN S <=1 F TRIMETH/SULFAMETHOXA ZOLE S <=1/19 F Susceptible [facility] Comment on above: Performed By: #### 6 30-4 #### [facility] ([id number]) [address] [place] [address], [address] [place] [address] URINE CULTUREon 03-03-2024 Bacteria identified Cx Nom (U) CULTURE RESULTS >100,000 ORGANISMS/mL ESCHERICHIA COLI [ S = SUSCEPTIBLE R = RESISTANT I = INTERMEDIATE S-DO = Susceptible-dose dependent NS = Non-suscceptible NO = No Interpretation ] Organism: ESCHERICHIA COLI Antibiotic Interpretation JAVON Status AMPICILLIN S <=2 F AMP/SULBACTAM S <=2/1 F CEFAZOLIN S <=4 F CEFTRIAXONE S <=0.25 F CIPROFLOXACIN R >=4 F GENTAMICIN S <=1 F LEVOFLOXACIN R >=8 F NITROFURANTOIN S <=16 F PIPERACIL/TAZOBACTAM S <=4 F TOBRAMYCIN S <=1 F TRIMETH/SULFAMETHOXA ZOLE S <=1/19 F Susceptible [facility] Comment on above: Performed By: #### 6 30-4 #### [facility] ([id number]) [facility], [address] [place] [address] HGB A1C (GLYCO-HGB)on 2023 Glucose [Mass/Vol] 140 mg/dL Normal [facility] Comment on above: Performed By: #### H A1C #### [facility] ([id number]) [address] [place] [address], [address] [place] [address] HbA1c (Bld) [Mass fraction] 6.5 % High 4.4-5.6 [facility] Comment on above: Result Comment: NOTE ADA Guidelines Result HgbA1c Normal : less than 5.7 % Prediabetes : 5.7 % to 6.4 % Diabetes : > 6.4 % Use with caution in patients with abnormal hemoglobin variants as the half-life of red blood cells and in vivo glycation rates are affected. Performed By: #### H A1C #### [facility] ([id number]) [address], [address] [place] [address] BASIC METABOLIC PANLon 12-17 Anion gap [Moles/Vol] 10 mmol/L Normal 5-15 [facility] Comment on above: Performed By: #### B MP #### [facility] ([id number]) [address], [address] [place] [address] Calcium [Mass/Vol] 9.4 mg/dL Normal 8.5-10.5 [facility] Comment on above: Performed By: #### B MP #### [facility] ([id number]) [address], [address] [place] [address] Chloride [Moles/Vol] 99 mmol/L Normal 98-109 [facility] Comment on above: Performed By: #### B MP #### [facility] ([id number]) [address], [address] [place] [address] CO2 [Moles/Vol] 28 mmol/L Normal 22-32 [facility] Comment on above: Performed By: #### B MP #### [facility] ([id number]) [address], [address] [place] [address] Creatinine [Mass/Vol] 1.13 mg/dL High 0.40-1.00 [facility] Comment on above: Result Comment: METH OD TRACEABLE TO IDMS STANDARD Performed By: #### B MP #### [facility] ([id number]) [address], [address] [place] [address] GFR/1.73 sq M.predicted among non-blacks MDRD (S/P/Bld) [Vol rate/Area] 50 mL/min/{1.73_m2} Low >59 [facility] Comment on above: Result Comment: Reported eGFR is based on the CKD-EPI 2020 equation that does not use a race coefficient. Performed By: #### B MP #### [facility] ([id number]) [address], [address] [place] [address] Glucose [Mass/Vol] 265 mg/dL High 65-99 [facility] Comment on above: Performed By: #### B MP #### [facility] ([id number]) [address], [address] [place] [address] Potassium [Moles/Vol] 4.3 mmol/L Normal 3.5-5.0 [facility] Comment on above: Performed By: #### B MP #### [facility] ([id number]) [address], [address] [place] [address] Sodium [Moles/Vol] 137 mmol/L Normal 134-146 [facility] Comment on above: Performed By: #### B MP #### [facility] ([id number]) [address], [address] [place] [address] Urea nitrogen [Mass/Vol] 18 mg/dL Normal 5-27 [facility] Comment on above: Performed By: #### B MP #### [facility] ([id number]) [address], [address] [place] [address] URINALYSISon 12-18-2023 Bilirubin Ql (U) Negative Normal NEG [facility] Comment on above: Performed By: #### U A #### [facility] ([id number]) [address], [address] [place] [address] BLOOD/HGB Negative Normal NEG [facility] Comment on above: Performed By: #### U A #### [facility] ([id number]) [address], [address] [place] [address] Color (U) YELLOW Normal YELLOW [facility] Comment on above: Performed By: #### U A #### [facility] ([id number]) [address], [address] [place] [address] Glucose Ql (U) Negative Normal NEG [facility] Comment on above: Performed By: #### U A #### [facility] ([id number]) [address], [address] [place] [address] Ketones Ql (U) Negative Normal NEG [facility] Comment on above: Performed By: #### U A #### [facility] ([id number]) [address], [address] [place] [address] Leukocyte esterase Test strip Ql (U) Negative Normal NEG [facility] Comment on above: Performed By: #### U A #### [facility] ([id number]) [address], [address] [place] [address] Nitrite Ql (U) Negative Normal NEG [facility] Comment on above: Performed By: #### U A #### [facility] ([id number]) [address], [address] [place] [address] pH (U) 6.5 [pH] Normal 5.0-8.5 [facility] Comment on above: Performed By: #### U A #### [facility] ([id number]) [address], [address] [place] [address] Protein Ql (U) Negative Normal NEG [facility] Comment on above: Performed By: #### U A #### [facility] ([id number]) [address], [address] [place] [address] Specific gravity (U) [Rel density] 1.009 Normal 1.003-1.035 [facility] Comment on above: Performed By: #### U A #### [facility] ([id number]) [address], [address] [place] [address] TURBIDITY CLEAR Normal CLEAR [facility] Comment on above: Performed By: #### U A #### [facility] ([id number]) [address], [address] [place] [address] Urobilinogen (U) [Mass/Vol] mg/dL Normal <1.1 [facility] Comment on above: Performed By: #### U A #### [facility] ([id number]) [address] [place] [address] URINE CULTUREon 12-18-2023 Bacteria identified Cx Nom (U) CULTURE RESULTS <10,000 ORGANISMS/ML NORMAL URO GENITAL RAHAT Normal [facility] Comment on above: Performed By: #### 6 30-4 #### [facility] ([id number]) [address], [address] [place] [address] XR CHEST 2 VWSon 12-18-2023 XR CHEST 2 VWS XR CHEST 2 VWS XR CHEST 2 VWS Chest 2 views History: Paroxysmal atrial fibrillation ([facility]); Essential hypertension; Preop examination Comparison: October 18, 2020 Impression: * No focal consolidation or pleural fluid. Grossly I cannot identify any mediastinal or hilar mass. No acute findings. * Moderate cardiomegaly similar to prior examination Finalized by Ernesto Bright MD on 12/18/2023 3:20 PM Normal [facility] URINE CULTUREon 10-31-2023 Bacteria identified Cx Nom (U) CULTURE RESULTS >100,000 ORGANISMS/mL ESCHERICHIA COLI [ S = SUSCEPTIBLE R = RESISTANT I = INTERMEDIATE S-DO = Susceptible-dose dependent NS = Non-suscceptible NO = No Interpretation ] Organism: ESCHERICHIA COLI Antibiotic Interpretation JAVON Status AMPICILLIN S 4 F AMP/SULBACTAM S <=2/1 F CEFAZOLIN S <=4 F CEFTRIAXONE S <=0.25 F CIPROFLOXACIN R >=4 F GENTAMICIN S <=1 F LEVOFLOXACIN R >=8 F NITROFURANTOIN S <=16 F PIPERACIL/TAZOBACTAM S <=4 F TOBRAMYCIN S <=1 F TRIMETH/SULFAMETHOXA ZOLE S <=/19 F Susceptible [facility] Comment on above: Performed By: #### 6 30-4 #### [facility] ([id number]) [address] [place] [address] BUNon 12-17-2017 Urea nitrogen mass conc 17.0 mg/dL Normal 7.0-17.0 [facility] Comment on above: Performed By: #### C MARILEE, BUN ####[facility] [id number] [place] CREATININEon 12-17-2017 Creatinine mass conc 1.24 mg/dL Critically high 0.52-1.04 [facility] Comment on above: Performed By: #### C MARILEE, BUN ####[facility] [id number] [place] EGFR-AF BAHRAINI 52 mL/min/1.73m2 Critically low >=60 [facility] Comment on above: Performed By: #### C MARILEE, BUN ####[facility] [id number] [place] EGFR-NON AF BAHRAINI 43 mL/min/1.73m2 Critically low >=60 [facility] Comment on above: Performed By: #### C MARILEE, BUN ####[facility] [id number] ABDOMEN W CONon 8 CT ABDOMEN W CON [address] [place] [address] Patient: AINSLEY ALBRIGHT Exam Date: 12/17/2017DOB: 1945 Gender:F : SHARA MOCK Admission #: [id number] : DR SHARA MONTESINOS Order #: [id number] HERE TO VIEW EXAM RADIOLOGY REPORT PROCEDURE: CT ABDOMEN WITH CONTRAST COMPARISON: None. INDICATIONS: Chronic diarrhea TECHNIQUE: CT images were created with IV contrast. Axial, Coronal, and Sagittal images. DOSE: 440 mGycm; 100 cc Omnipaque 300 FINDINGS: LUNG BASES: No visible pulmonary or pleural disease. LIVER: No enlargement, atrophy, abnormal density, or significant focal lesion. BILIARY: No visible dilatation or calcification. PANCREAS: No lesion, fluid collection, ductal dilatation. SPLEEN: No enlargement or focal lesion. ADRENALS: No mass or enlargement. KIDNEYS: Small renal cysts. No mass, obstruction, or calcification. BOWEL/MESENTERY: No visible mass, obstruction, or bowel wall thickening. Normal appendix.AORTA/VASCU LAR: No aneurysm or dissection. RETROPERITONEUM: No mass or adenopathy. ABDOMINAL WALL: No mass or hernia. BONES: L4-5, L5-S1 marked degenerative disc disease. No bony lesion or fracture. OTHER: Negative. CONCLUSION: 1. Limited evaluation of the bowel as only the abdomen was included on today's study. No visible stomach or bowel abnormality. Dictated by: Fco Santiago M.D. on 12/17/2017 at 15:50 Approved by: Fco Santiago M.D. on 12/17/2017 at 15:57 Normal [facility] Vital Signs Date Time Vital Sign Value Performing Clinician Faci lity 11-27-2024 09:52-0400 Body height 176.5 cm Nadia Morin MD Work Phone: [facility] 11-27-2024 09:52-0400 Body mass index (BMI) [Ratio] 26.94 kg/m2 Nadia Morin MD Work Phone: [facility] 11-27-2024 09:52-0400 Body weight 83.92 kg Nadia Morin MD Work Phone: [facility] 11-27-2024 09:52-0400 Diastolic blood pressure 66 mm[Hg] Nadia Morin MD Work Phone: [facility] 11-27-2024 09:52-0400 Heart rate 50 /min Nadia Morin MD Work Phone: [facility] 11-27-2024 09:52-0400 Systolic blood pressure 128 mm[Hg] Nadia Morin MD Work Phone: [facility] 08-26-2024 15:39-0400 Body height 176.5 cm Isa Mercado MD Work Phone: [facility] [employer] [facility] 08-26-2024 15:39-0400 Body mass index (BMI) [Ratio] 27.4 kg/m2 Isa Mercado MD Work Phone: [facility] 08-26-2024 15:39-0400 Body weight 85.37 kg Isa Mercado MD Work Phone: [facility] 08-26-2024 15:39-0400 Diastolic blood pressure 50 mm[Hg] Isa Mercado MD Work Phone: [facility] 08-26-2024 15:39-0400 Heart rate 59 /min Isa Mercado MD Work Phone: [facility] 08-26-2024 15:39-0400 SaO2% (BldA) [Mass fraction] 98 % Isa Mercado MD Work Phone: [facility] 08-26-2024 15:39-0400 Systolic blood pressure 98 mm[Hg] Isa Mercado MD Work Phone: [facility] 06-25-2024 12:59-0400 Body mass index (BMI) [Ratio] 28.09 kg/m2 Harshad Zapata MD Work Phone: [facility] 06-25-2024 12:59-0400 Body weight 87.54 kg Harshad Zapata MD Work Phone: [facility] 06-25-2024 12:59-0400 Diastolic blood pressure 62 mm[Hg] Harshad Zapata MD Work Phone: [facility] 06-25-2024 12:59-0400 Heart rate 65 /min Harshad Zapata MD Work Phone: [facility] 06-25-2024 12:59-0400 Respiratory rate 18 /min Harshad Zapata MD Work Phone: [facility] 06-25-2024 12:59-0400 SaO2% (BldA) [Mass fraction] 97 % Harshad Zapata MD Work Phone: [facility] 06-25-2024 12:59-0400 Systolic blood pressure 114 mm[Hg] Harshad Zapata MD Work Phone: [facility] Encounters Encounter Date Encounter Type Care Provider Facility Start: 11-27-2024 End: 11-27-2024 Office outpatient visit 25 minutes Nadia Morin MD Work Phone: [facility] Comment on above: Paroxysmal atrial fi brillation (CMS-HCC) (Primary Dx); Exertional dyspnea Start: 11-27-2024 End: 11-27-2024 ambulatory [facility] Start: 11-23-2024 End: 11-24-2024 Refill Harshad Zapata MD Work Phone: [facility] Comment on above: Diabetic polyneuropa thy associated with type 2 diabetes mellitus ([facility]) Start: 10-27-2024 End: 10-27-2024 Refill May Capellan LPN [facility] Comment on above: Diabetic polyneuropa thy associated with type 2 diabetes mellitus (CMS-HCC) Start: 10-13-2024 End: 10-13-2024 Telephone encounter May CUELLAR Work Phone: [facility] Start: 10-13-2024 ambulatory HENRYFATMATA SIMMONS [facility] Start: 09-24-2024 End: 09-24-2024 Refill May Capellan LPN [facility] Comment on above: Diabetic polyneuropa thy associated with type 2 diabetes mellitus ([facility]) Start: 08-26-2024 End: 08-26-2024 Office outpatient visit 15 minutes Isa Mercado MD Work Phone: [facility] Comment on above: Paroxysmal atrial fi brillation (CMS-HCC) (Primary Dx) Start: 08-26-2024 End: 08-27-2024 ambulatory [facility] Start: 08-25-2024 End: 08-25-2024 Orders Only Judy Monzon OPHTHALMIC MEDICAL TECHNOLOGIST-LOADING UNIT OPERATOR [employer] Work Phone: [facility] Comment on above: Diabetic polyneuropa thy associated with type 2 diabetes mellitus ([facility]) Start: 08-15-2024 End: 08-15-2024 Refill Nan Nieves RN [facility] Comment on above: Med Refill Start: 08-03-2024 End: 08-05-2024 Refill Shara Montesinos MD Work Phone: [facility] Comment on above: Med Refill Start: 07-28-2024 End: 07-28-2024 Refill Shauna Mcdaniels CMA [facility] Comment on above: Diabetic polyneuropa thy associated with type 2 diabetes mellitus ([facility]) Start: 06-29-2024 End: 06-30-2024 Refill Shara Montesinos MD Work Phone: [facility] Comment on above: Essential hypertensi on, benign; Diabetes mellitus without complication ([facility]); Acquired hypothyroidism Start: 06-25-2024 End: 06-25-2024 Office outpatient visit 25 minutes Harshad Zapata MD Work Phone: [facility] Comment on above: Diabetic polyneuropa thy associated with type 2 diabetes mellitus ([facility]) (Primary Dx); Paroxysmal atrial fibrillation ([facility]); Essential hypertension; Gastroesophageal reflux disease without esophagitis; Acquired hypothyroidism; Ventricular tachycardia ([facility]) Start: 06-25-2024 End: 06-25-2024 ambulatory HARSHAD ZAPATA [facility] Start: 05-27-2024 End: 05-27-2024 Refill May Capellan LPN [facility] Comment on above: Diabetic polyneuropa thy associated with type 2 diabetes mellitus ([facility]) Start: 05-22-2024 End: 05-22-2024 ambulatory KARINA SALAZAR [facility] Start: 05-22-2024 End: 05-22-2024 ambulatory ISA MERCADO [facility] Start: 05-21-2024 End: 05-21-2024 Orders Only May CUELLAR Work Phone: [facility] Start: 05-19-2024 End: 05-19-2024 Telephone encounter Elisha Kwok RN [facility] Comment on above: methenamine Start: 05-19-2024 End: 05-19-2024 ambulatory AGA HOANG [facility] Start: 05-15-2024 End: 05-15-2024 ambulatory SHARA MONTESINOS [facility] Start: 05-13-2024 End: 05-13-2024 Refill Wilmar Navas OPHTHALMIC MEDICAL TECHNOLOGIST-LOADING UNIT OPERATOR [employer] Work Phone: [facility] Comment on above: Med Refill Start: 05-12-2024 End: 05-12-2024 ambulatory ISA MERCADO [facility] Start: 05-06-2024 End: 05-06-2024 Refill Shara Montesinos MD Work Phone: [facility] Start: 04-30-2024 End: 04-30-2024 Refill May Capellan LPN [facility] Start: 04-28-2024 End: 04-28-2024 Refill May Capellan LPN [facility] Comment on above: Diabetic polyneuropa thy associated with type 2 diabetes mellitus ([facility]) Start: 04-25-2024 End: 04-25-2024 Orders Only Aga Hoang OPHTHALMIC MEDICAL TECHNOLOGIST-LOADING UNIT OPERATOR [place] Work Phone: [facility] Start: 04-22-2024 End: 04-22-2024 ambulatory WILMAR SOLO [facility] Start: 04-22-2024 End: 04-22-2024 Telephone encounter Fransisco Rodriguez CMA [facility] Start: 04-10-2024 End: 04-10-2024 [facility] Start: 04-02-2024 End: 04-02-2024 Refill May Capellan LPN [facility] Comment on above: Essential hypertensi on, benign Start: 03-25-2024 End: 03-25-2024 [facility] Comment on above: Diabetic polyneuropa thy associated with type 2 diabetes mellitus ([facility]) Start: 03-10-2024 End: 03-10-2024 Refill Shara Montesinos MD Work Phone: [facility] Start: 03-03-2024 End: 03-03-2024 Orders Only May Mccormick [facility] Comment on above: Burning with urinati on (Primary Dx) Start: 02-27-2024 End: 02-27-2024 Refill Shauna Mcdaniels CMA [facility] Comment on above: Diabetic polyneuropa thy associated with type 2 diabetes mellitus ([facility]) Start: 01-30-2024 End: 01-30-2024 ambulatory ISA MERCADO [facility] Start: 01-01-2024 End: 01-01-2024 Evaluation and management of inpatient SWATHI ROY [facility] Start: 01-01-2024 End: 01-01-2024 Evaluation and management of inpatient WILMAR SOLO [facility] Start: 12-20-2023 End: 12-20-2023 ambulatory [facility] Start: 12-20-2023 End: 12-20-2023 ambulatory [facility] Start: 12-20-2023 Encounter for genera l adult medical examination without abnormal findings [facility] Start: 12-18-2023 End: 12-18-2023 ambulatory SHARA EDWARD [facility] Start: 12-18-2023 End: 12-18-2023 ambulatory [facility] Start: 12-18-2023 Encounter for other preprocedural examination [facility] Start: 11-01-2023 End: 11-01-2023 ambulatory MAY KANG [facility] Start: 10-31-2023 End: 10-31-2023 ambulatory MAY KANG [facility] Start: 12-17-2017 End: 12-18-2017 Patient encounter procedure SHARA MOCK Facility:H1 Procedures Date Procedure Procedure Detail Performing Clinician Start: 11-27-2024 Ecg routine ecg w/le ast 12 lds w/i&r Nadia Morin MD Work Phone: Start: 08-26-2024 Ecg routine ecg w/le ast 12 lds w/i&r Isa Mercado MD Work Phone: Start: 08-26-2024 Follow-up visit Follow-up ISA MERCADO Start: 06-25-2024 Follow-up visit Follow-up HARSHAD GARCIAS Start: 06-25-2024 Adult depression screening assessment Harshad Zapata MD Work Phone: Start: 01-30-2024 Follow-up visit Follow-up ISA MERCADO Start: 12-20-2023 Adult depression screening assessment Shauna Mcdaniels CMA Plan of Treatment Date Care Activity Detail Author Start: 11-27-2025 Tobacco Screening Tobacco Screening [facility] Start: 08-26-2025 Tobacco Screening Tobacco Screening [facility] Start: 06-25-2025 Depression Screening [facility] Start: 06-25-2025 Tobacco Screening Tobacco Screening [facility] Start: 05-22-2025 Tobacco Screening Tobacco Screening [facility] Start: 01-29-2025 Tobacco Screening Tobacco Screening [facility] Start: 12-30-2024 End: 12-30-2024 Patient encounter procedure 12/30/2024 10:30 AM EST Office Visit [facility] [address] [place] [id number] Harhsad Zapata MD [address] [place] [id number] [facility] Start: 12-23-2024 End: 12-23-2024 Patient encounter procedure 12/23/2024 1:30 PM EST Office Visit [facility] [address] [place] [id number] Harshad Zapata MD [facility] [place] [address] [facility] Start: 12-19-2024 Depression Screening Depression Screening [facility] Start: 12-19-2024 Fall Risk Screening Fall Risk Screening [facility] Start: 12-19-2024 Medicare Annual Wellness Visit Medicare Annual Wellness Visit [facility] Start: 11-27-2024 End: 11-27-2025 NM Heart Perfusion W adenosine and W radionuclide IV Nuc stress Lexiscan/Exercise Cardiac Services Routine Exertional dyspnea Expected: 11/27/2024, Expires: 11/27/2025 [facility] Work Phone: Comment on above: Expected: 11/27/2024, Expires: Start: 10-20-2024 COVID-19 Vaccine ( season) COVID-19 Vaccine ( season) [facility] Start: 10-20-2024 Influenza vaccination Influenza Vaccine [facility] Start: 08-26-2024 End: 08-26-2024 Patient encounter procedure 08/26/2024 4:00 PM EDT Office Visit [facility] [address] [place] [phone] Isa Mercado MD [address] [place], [place] [id number] [facility] Start: 08-01-2024 COVID-19 Vaccine ( season) COVID-19 Vaccine ( season) [facility] Start: 06-25-2024 End: 06-25-2024 Patient encounter procedure 06/25/2024 1:00 PM EDT Office Visit [facility] [address] [place] [id number] Harshad Zapata MD [address] [place] [address] [facility] Start: 05-22-2024 End: 05-22-2024 Admission to same day surgery center 05/22/2024 10:30 AM EDT - 05/22/2024 1:30 PM EDT Surgery [facility] [address] [facility] [place] [phone] Isa Mercado MD [address] [place] [address] Afib ablation - PFA, OSMAR, ICE [59253 (CPT )] [facility] Comment on above: Afib ablation - PFA, OSMAR, ICE [36621 (CP T )] Start: 05-22-2024 Subsequent hospital visit by physician 05/22/2024 10:30 AM EDT Hospital Encounter [facility] [address] [place] [phone] Isa Mercado MD [address] [place] [address] Paroxysmal atrial fibrillation ([facility]) [facility] Comment on above: Paroxysmal atrial fibrillation ([facility]) Start: 05-19-2024 End: 05-19-2025 Bacteria identified in Urine by Culture [facility] Work Phone: Comment on above: Expected: 05/19/2024, Expires: Start: 05-15-2024 End: 05-15-2024 Patient encounter procedure 05/15/2024 10:30 AM EDT Appointment [facility] [address] [address] [facility] Start: 05-12-2024 End: 05-12-2024 Patient encounter procedure 05/12/2024 10:30 AM EDT Appointment [facility] [address] [place] [address] Isa Mercado MD [address] [place] [address] [facility] Start: 04-14-2024 End: 04-14-2024 Patient encounter procedure 04/14/2024 10:30 AM EST Appointment [facility] [address] [place] [address] Isa Mercado MD [address] [place] [address] [facility] Start: 10-21-2023 COVID-19 Vaccine ( season) COVID-19 Vaccine ( season) [facility] Start: 1996 Administration of varicella zoster vaccine Zoster (Shingles) Vaccine (1 of 2) [facility] Start: 1965 DTaP,Tdap and Td Vaccines (1 - Tdap) DTaP,Tdap and Td Vaccines (1 - Tdap) [facility] End: 03-03-2025 Bacteria identified in Urine by Culture Urine culture Microbiology Routine Burning with urination 1 Occurrences starting 03/03/2024 until 03/03/2025 [facility] Work Phone: Comment on above: 1 Occurrences starting 03/03/2024 until 03/03/2025 End: 04-22-2025 Bacteria identified in Urine by Culture Urine culture Microbiology Routine Recurrent UTI 1 Occurrences starting 04/22/2024 until 04/22/2025 [facility] Work Phone: Comment on above: 1 Occurrences starting 04/22/2024 until 04/22/2025 Bacteria identified in Urine by Culture Urine culture Microbiology Routine Recurrent UTI 04/22/2024 3:27 PM EST [facility] Immunizations Immunization Date Immunization Notes Care Provider Fa cility 01-11-2024 influenza virus vacc ine, unspecified formulation May CUELLAR Work Phone: [facility] 12-01-2022 Influenza, High-dose , Quadrivalent Shauna Mcdaniels [facility] 12-12-2021 Influenza, High-dose , Quadrivalent Shauna Mcdaniels [facility] 11-12-2020 Influenza, High-dose , Quadrivalent Shauna Mcdaniels [facility] 12-26-2016 influenza, injectabl e, quadrivalent, preservative free Shauna Mcdaniels [facility] 12-26-2016 pneumococcal polysaccharide vaccine, 23 valent Shauna Mcdaniels [facility] Payers Date Payer Category Payer Medicare HMO [employer] [id number] 2023 Unknown [id number] 1958 Medicare [id number] 1959 Unknown [id number] 1945 Unknown [id number] .[id number] 1945 Unknown [id number].1286 1945 Unknown [id number] .840.1.752995.3.579.2.1286 1946 Unknown [id number] 840.1.139093.3.579.2.1286 1946 Unknown [id number] 2.840.1.088482.3.579.2.1285 1946 Unknown [id number] 2.16840.1.321335.3.579.2.1285 1946 Unknown [id number] 2.16840.1.928427.3.579.2.1285 1946 Unknown [id number] 2.840.1.143131.3.579.2.1285 1946 Unknown [id number] 2.840.1.919804.3.579.2.1285 1946 Unknown [id number] 2.840.1.580639.3.579.2.1285 1946 Unknown [id number] 2.840.1.110179.3.579.2.1285 1946 Unknown [id number] 2.0.1.946478.3.579.2.1285 1946 Unknown [id number] 2.0.1.562603.3.579.2.1285 1946 Unknown [id number] 2.0.1.381914.3.579.2.1285 1946 Unknown [id number] 2.840.1.023165.3.579.2.1285 1946 Unknown [id number] 2.840.1.823872.3.579.2.1285 1946 Unknown [id number] 2.840.1.194425.3.579.2.1285 1946 Unknown [id number] 2.840.1.022742.3.579.2.1285 1946 Unknown [id number] 2.840.1.988143.3.579.2.1285 1946 Unknown [id number] 2.840.1.066540.3.579.2.1286 1946 Unknown [id number] 2.16.840.1.689267.3.579.2.1285 1946 Unknown [id number] 2.16.840.1.284928.3.579.2.1286 1946 Unknown [id number] 2.16.840.1.203373.3.579.2.1286 1946 Unknown [id number] 2.16.840.1.217319.3.579.2.1286 Social History Date Type Detail Facility Start: 12-15-2021 Tobacco smoking status NHIS Never smoked tobacco [facility] Start: 12-15-2021 Tobacco use and exposure Smokeless tobacco non-user [facility] Start: 01-30-2024 End: 11-27-2024 Alcoholic beverage intake Current drinker of alcohol (finding) [facility] Start: 12-28-2017 End: 03-02-2020 History of Social function [facility] Start: 12-28-2017 End: 03-02-2020 Alcohol Use Disorder Identification Test - Consumption [AUDIT-C] [facility] Frequency of Alcohol Consumption Monthly or less [facility] Start: 10-13-2021 Alcohol Comment 1 drink per week [facility] Start: 1945 Sex assigned at Female [facility] Start: 09-24-2014 Sex Female (finding) [facility] Start: 02-23-2022 Gender identity Identifies as female gender (finding) [facility] Start: 02-23-2022 Sexual orientation Heterosexual (finding) [facility] Medical Equipment Procedure Code Equipment Code Equipment Origin al Text Equipment Identifier Dates USE ONE STRIP TO TEST DAILY, Diagnosis: E11.42 [id number] Start: 01-19-2023 End: 04-10-2024 For use with One Touch, Test daily, Diagnosis: E11.9 [id number] Start: 03-15-2017 USE ONE STRIP TO TEST DAILY, Diagnosis: E11.42 [id number] Start: 04-10-2024 Clinical Notes 03-03-2024 to 11-27-2024 Nadia Morin MD - 11/27/2024 10:00 AM EDTTelephone Encounter - Roxanne Perez - 10/13/2024 9:45 AM EDTTelephone Encounter - Roxanne Perez - 10/13/2024 9:45 AM EDT Note Date & Type Note Facility 11-27-2024 History of Presen t illness Narrative Ainsley Albright Date of visit: 11/27/2024 Date of : 1945 Age: 79 y.o. Patient Active Problem List Diagnosis Recurrent UTI Cystocele, midline Weakening of rectovaginal tissue Urethral meatal stenosis Paroxysmal atrial fibrillation ([facility]) Essential hypertension Acquired hypothyroidism Diabetic polyneuropathy associated with type 2 diabetes mellitus ([facility]) Diarrhea History of colon polyps Cystitis Obesity (BMI 30-39.9) Obesity (BMI 30-39.9) Shortness of breath Overactive bladder GERD (gastroesophageal reflux disease) Obesity (BMI 30-39.9) Ventricular tachycardia ([facility]) Varicose veins of bilateral lower extremities with pain Venous hypertension Rhinitis Disorder of sacrum Other specified mononeuropathies of bilateral lower limbs Bilateral sacroiliitis No Known Allergies Current Outpatient Medications Medication Sig Dispense Refill allopurinoL (ZYLOPRIM) 100 mg tablet TAKE 1 TABLET BY MOUTH EVERY MORNING 90 tablet 1 amoxicillin (AMOXIL) 500 mg capsule Take 1 capsule (500 mg total) by mouth 3 (three) times a day. apixaban (ELIQUIS) 5 mg tablet Take 1 tablet (5 mg total) by mouth in the morning and at bedtime. TAKE 1 TABLET BY MOUTH 2 TIMES A DAY (MORNING AND BEFORE BEDTIME) 180 tablet 1 bisoprolol (ZEBETA) 5 mg tablet TAKE 1 TABLET BY MOUTH EVERY MORNING AND TAKE 1 TABLET BY MOUTH EVERY NIGHT AT BEDTIME 180 tablet 1 blood sugar diagnostic ([employer] ULTRA TEST) strip USE ONE STRIP TO TEST DAILY, Diagnosis: E11.42 100 strip 3 blood-glucose meter [facility] One Touch Glucometer, Use daily, Diagnosis: E11.9 1 each 0 calcium carbonate-vitamin D3 600 mg calcium- 200 unit capsule Take 2 capsules by mouth in the morning. Takes 1200mg bid. furosemide (LASIX) 20 mg tablet Take 1 tablet (20 mg total) by mouth daily. 90 tablet 3 glimepiride (AMARYL) 1 mg tablet Take 1 tablet (1 mg total) by mouth every morning before breakfast. TAKE ONE TABLET BY MOUTH EVERY MORNING AND TAKE ONE TABLET BY MOUTH EVERY NIGHT BEFORE BEDTIME 180 tablet 3 lancets 30 gauge [facility] For use with One Touch, Test daily, Diagnosis: E11.9 100 each 3 levothyroxine (SYNTHROID, LEVOTHROID) 125 MCG tablet Take 1 tablet (125 mcg total) by mouth in the morning. 90 tablet 2 MAGNESIUM OXIDE/MAG AA CHELATE (MAGNESIUM, OXIDE/AA CHELATE, ORAL) Take 400 mg by mouth in the morning and 400 mg before bedtime. metFORMIN (GLUCOPHAGE) 1000 mg tablet Take 1 tablet (1,000 mg total) by mouth in the morning and 1 tablet (1,000 mg total) in the evening. Take with meals. TAKE ONE TABLET BY MOUTH EVERY MORNING AND TAKE ONE TABLET BY MOUTH EVERY NIGHT BEFORE BEDTIME. 180 tablet 3 methenamine (HIPREX) 1 gram tablet Take 1 tablet (1 g total) by mouth in the morning and 1 tablet (1 g total) before bedtime. Do all this for 360 days. 180 tablet 3 MULTIVIT-MINERALS/FERROUS FUM (MULTI VITAMIN ORAL) Take 1 tablet by mouth in the morning. omeprazole (PriLOSEC) 20 mg capsule TAKE ONE CAPSULE BY MOUTH EVERY MORNING 90 capsule 3 pregabalin (LYRICA) 100 mg capsule TAKE 1 CAPSULE BY MOUTH 2 TIMES A DAY IN THE MORNING AND BEFORE BEDTIME 60 capsule 0 No current facility-administered medications for this visit. Chief Complaint Patient presents with Pre-op Exam PRE OP DENTAL PROCEDURE DR DONALD TERESA W/ PT NO TESTS, FORM SCANNED TO MEDIA History of Present Illness 79-year-old female is here for preoperative cardiovascular evaluation prior to dental surgical procedure. past medical history of Paroxysmal atrial fibrillation. Eliqujory 5 mg b.i.d. Did not tolerate flecainide. Status post pulmonary vein isolation as well as left atrial posterior wall isolation 06/13. 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 Essential Hypertension Hypothyroidism Diabetes. On metformin and glipizide. Obesity. CKD. Echo 05/13. EF normal. [id number] MR. Low risk nuclear stress test in 2020. She report exertional dyspnea after about 15 minutes of walking tells me that this has been better since prior to ablation but she does say that she has to stop after 15 minutes Otherwise no chest pain lower extremity edema orthopnea or palpitations no recurrence of AFib since ablation she monitors her rhythm through a smart watch Past Medical History: Diagnosis Date A-fib ([facility]) Acid reflux Acquired hypothyroidism 03/15/2017 Anemia Arthritis Cancer ([facility]) breast Chronic pain disorder Cystitis Cystocele, midline 04/05/2016 February 20 017: Pop Q stage 1 anterior compartment prolapse Diabetes mellitus ([facility]) Diabetes mellitus type 2, controlled ([facility]) Diabetic polyneuropathy associated with type 2 diabetes mellitus ([facility]) 03/15/2017 Diarrhea Essential hypertension, benign 03/15/2017 Exocrine pancreatic insufficiency 01/28/2018 Gout History of chemotherapy 2011 History of radiation therapy 2011 Hyperlipidemia Hypertension Hypothyroid Joint pain Low back pain Mitral valve prolapse Paroxysmal atrial fibrillation ([facility]) 02/22/2015 Urethral stenosis 04/05/2016 February 20 017: Status post cystoscopy with urethral dilation March 23 017: Postvoid residual 12 cc. Urinary tract infection Venous insufficiency Visual impairment CONTACT RIGHT EYE Weakening of rectovaginal tissue 04/05/2016 February 20 017: Pop Q stage II posterior compartment prolapse No data recorded No data recorded No data recorded Past Surgical History: Procedure Laterality Date Afib ablation - PFA, OSMAR, ICE N/A 05/22/2024 Performed by Isa Mercado MD at [facility] (EP) BREAST BIOPSY BREAST LUMPECTOMY Left COLONOSCOPY CYSTOSCOPY CYSTOSCOPY DILATATION URETHRAL with pelvic exam N/A 08/15/2019 Performed by Elisha Simpson MD at [facility] CYSTOSCOPY UOFM INSTILLATION N/A 01/01/2024 Performed by Wilmar Solo MD at [facility] EP Invasive N/A 05/22/2024 Performed by Isa Mercado MD at [facility] (EP) HYSTERECTOMY INJECTION BLOCK NERVE: bilat cluneal Bilateral 06/22/2023 Performed by Pradeep Carolina MD at [facility] INJECTION BLOCK NERVE: bilat cluneal Bilateral 06/22/2023 Performed by Pradeep Carolina MD at [facility] INJECTION BLOCK NERVE: bilat cluneal Bilateral 01/19/2023 Performed by Pradeep Carolina MD at [facility] INJECTION BLOCK SACROILIAC JOINT Bilateral 09/08/2022 Performed by Pradeep Carolina MD at [facility] INJECTION BLOCK SACROILIAC JOINT Bilateral 02/03/2022 Performed by Pradeep Carolina MD at [facility] INJECTION BLOCK SACROILIAC JOINT Bilateral 10/28/2021 Performed by Pradeep Carolina MD at [facility] JOINT REPLACEMENT hip x2 LYMPH NODE BIOPSY MASTECTOMY Left 2012 OTHER SURGICAL HISTORY s/p tahbso 1996 TONSILLECTOMY 1974 TOTAL HIP ARTHROPLASTY Bilateral TUBAL LIGATION 1981 VARICOSE VEIN SURGERY Family History Problem Relation Age of Onset Diabetes Father Heart disease Father Early Father Mental illness Mother COPD Brother Kidney disease Brother Drug abuse Sister Ovarian cancer Sister Breast cancer Sister Social History Socioeconomic History Marital status: Spouse name: Not on file Number of children: Not on file Years of education: Not on file Highest education level: Not on file Occupational History Not on file Tobacco Use Smoking status: Never Smokeless tobacco: Never Vaping Use Vaping status: Never Used Substance and Sexual Activity Alcohol use: Yes Comment: 1 drink per week Drug use: No Sexual activity: Defer Partners: Male Other Topics Concern Caffeine Use Yes Social History Narrative Not on file Social Drivers of Health Financial Resource Strain: Low Risk (06/11/2022) Overall Financial Resource Strain (CARDIA) Difficulty of Paying Living Expenses: Not hard at all Food Insecurity: No Food Insecurity (11/27/2024) Hunger Screening Food Insecurity - Worry: Never True Food Insecurity - Inability: Never True Transportation Needs: No Transportation Needs (06/11/2022) PRAPARE - Transportation Lack of Transportation (Medical): No Lack of Transportation (Non-Medical): No Physical Activity: Not on file Stress: Not on file Social Connections: Not on file Interpersonal Safety: Not on file Housing Instability: Low Risk (06/11/2022) Housing Instability Housing Instability: No Review of Systems Review of Systems Constitutional: Negative. HENT: Negative. Eyes: Negative. Cardiovascular: Negative. Respiratory: Positive for shortness of breath. Endocrine: Negative. Hematologic/Lymphatic: Negative. Skin: Negative. Musculoskeletal: Negative. Gastrointestinal: Positive for constipation. Genitourinary: Negative. Neurological: Negative. Psychiatric/Behavioral: Negative. Allergic/Immunologic: Negative. Vascular: Negative. CARDIOVASCULAR: Please review HPI. Physical Examination General appearance: Alert, oriented and cooperative. In no acute distress. Skin: Warm and dry to touch. Head: Normocephalic, without obvious abnormality, atraumatic. Ears, Nose, Mouth, Throat: Throat clear without erythema or exudate. Dentition intact. Eyes: Conjunctivae unremarkable, EOM intact. Neck: No JVD, No carotid bruit. Neck supple, trachea midline. Respiratory: Clear to auscultation bilaterally, no use of accessory muscles. Cardiovascular: RRR with normal S1 and S2 with no murmurs. Gastrointestinal: Soft, non-tender. Bowel sounds normal. Musculoskeletal: No peripheral edema. Neurologic: Oriented to time, person and place, affect appropriate. No focal/major motor defects noted. Psychiatric: Appropriate mood, memory and judgement. VITAL SIGNS: BP 128/66 Pulse 50 Ht 176.5 cm (5' 9.49 ) Wt 83.9 kg (185 lb) BMI 26.94 kg/m Orders Placed or Reconciled This Encounter Medications amoxicillin (AMOXIL) 500 mg capsule Sig: Take 1 capsule (500 mg total) by mouth 3 (three) times a day. There are no discontinued medications. IMPRESSIONS/PLAN 1. Paroxysmal atrial fibrillation (CMS-HCC) - POCT EKG 2. Exertional dyspnea - Nuc stress Lexiscan/Exercise; Future Preoperative cardiovascular evaluation Exertional dyspnea Paroxysmal atrial fibrillation Status post pulmonary vein isolation as well as left atrial posterior wall isolation 06/13. 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 Essential Hypertension Hypothyroidism Diabetes type 2 On metformin and glipizide. Obesity. She is maintaining normal sinus rhythm EKG today with sinus bradycardia, asymptomatic. She has low cardiac, non prohibitive preoperative cardiovascular risk for teeth surgical procedure and can proceed without further testing. Eliquis can be held 2-3 days perioperatively . We did discuss risks benefits stopped bleeding stroke prevention in this context Given her coronary artery disease risk factor and exertional dyspnea I would get an ischemic evaluation with an exi/lorena to have an idea about her functional capacity and evaluate for ischemia this can be done after her dental procedure Otherwise blood pressure is controlled and she is well compensated - NADIA MORIN MD 11/27/24 12:15 PM TODAYS ORDERS Orders Placed This Encounter Procedures Nuc stress Lexiscan/Exercise POCT EKG FOLLOW UP Return in about 6 months (around 05/28/2025). PCP: HARSHAD ZAPATA MD Referring Physician: Harshad Zapata MD [address] [place] [address] documented in this encounter [facility] 10-13-2024 Miscellaneous Notes Patient called today and states her Methenamine 1g 1 in am and 1 in pm is not working quite effective. She c/o burning and frequent urination. She states no blood or fever or chills. Please advise. [facility] this encounter [facility]24 Telephone encounter Note Patient called today and states her Methenamine 1g 1 in am and 1 in pm is not working quite effective. She c/o burning and frequent urination. She states no blood or fever or chills. Please advise. [facility] 08-26-2024 History of Presen t illness Narrative Ainsley Albright Date of visit: 08/26/2024 Date of : 1945 Age: 79 y.o. Patient Active Problem List Diagnosis Recurrent UTI Cystocele, midline Weakening of rectovaginal tissue Urethral meatal stenosis Paroxysmal atrial fibrillation ([facility]) Essential hypertension Acquired hypothyroidism Diabetic polyneuropathy associated with type 2 diabetes mellitus ([facility]) Diarrhea History of colon polyps Cystitis Obesity (BMI 30-39.9) Obesity (BMI 30-39.9) Shortness of breath Overactive bladder GERD (gastroesophageal reflux disease) Obesity (BMI 30-39.9) Ventricular tachycardia ([facility]) Varicose veins of bilateral lower extremities with pain Venous hypertension Rhinitis Disorder of sacrum Other specified mononeuropathies of bilateral lower limbs Bilateral sacroiliitis No Known Allergies Current Outpatient Medications Medication Sig Dispense Refill allopurinoL (ZYLOPRIM) 100 mg tablet TAKE 1 TABLET BY MOUTH EVERY MORNING 90 tablet 1 apixaban (ELIQUIS) 5 mg tablet Take 1 tablet (5 mg total) by mouth in the morning and at bedtime. TAKE 1 TABLET BY MOUTH 2 TIMES A DAY (MORNING AND BEFORE BEDTIME) 180 tablet 1 bisoprolol (ZEBETA) 5 mg tablet TAKE 1 TABLET BY MOUTH EVERY MORNING AND TAKE 1 TABLET BY MOUTH EVERY NIGHT AT BEDTIME 180 tablet 1 blood sugar diagnostic ([employer] ULTRA TEST) strip USE ONE STRIP TO TEST DAILY, Diagnosis: E11.42 100 strip 3 blood-glucose meter mis One Touch Glucometer, Use daily, Diagnosis: E11.9 1 each 0 calcium carbonate-vitamin D3 600 mg calcium- 200 unit capsule Take 2 capsules by mouth in the morning. Takes 1200mg bid. furosemide (LASIX) 20 mg tablet Take 1 tablet (20 mg total) by mouth daily. 90 tablet 3 glimepiride (AMARYL) 1 mg tablet Take 1 tablet (1 mg total) by mouth every morning before breakfast. TAKE ONE TABLET BY MOUTH EVERY MORNING AND TAKE ONE TABLET BY MOUTH EVERY NIGHT BEFORE BEDTIME 180 tablet 3 lancets [facility] gauge [facility] For use with One Touch, Test daily, Diagnosis: E11.9 100 each 3 levothyroxine (SYNTHROID, LEVOTHROID) 125 MCG tablet Take 1 tablet (125 mcg total) by mouth in the morning. 90 tablet 2 lisinopriL (PRINIVIL,ZESTRIL) 5 mg tablet TAKE 1 TABLET BY MOUTH EVERY MORNING 90 tablet 0 MAGNESIUM OXIDE/MAG AA CHELATE (MAGNESIUM, OXIDE/AA CHELATE, ORAL) Take 400 mg by mouth in the morning and 400 mg before bedtime. metFORMIN (GLUCOPHAGE) 1000 mg tablet Take 1 tablet (1,000 mg total) by mouth in the morning and 1 tablet (1,000 mg total) in the evening. Take with meals. TAKE ONE TABLET BY MOUTH EVERY MORNING AND TAKE ONE TABLET BY MOUTH EVERY NIGHT BEFORE BEDTIME. 180 tablet 3 methenamine (HIPREX) 1 gram tablet Take 1 tablet (1 g total) by mouth in the morning and 1 tablet (1 g total) before bedtime. Do all this for 360 days. 180 tablet 3 MULTIVIT-MINERALS/FERROUS FUM (MULTI VITAMIN ORAL) Take 1 tablet by mouth in the morning. omeprazole (PriLOSEC) 20 mg capsule TAKE ONE CAPSULE BY MOUTH EVERY MORNING 90 capsule 3 pregabalin (LYRICA) 100 mg capsule Take 1 capsule (100 mg total) by mouth in the morning and 1 capsule (100 mg total) before bedtime. 60 capsule 0 No current facility-administered medications for this visit. Chief Complaint Patient presents with Follow-up ov s/p abln 05/22/24 [facility] héctor w pt History of Present Illness 79-year-old female with past medical history of Paroxysmal atrial fibrillation. Eliquis 5 mg b.i.d. Did not tolerate flecainide. Status post pulmonary vein isolation as well as left atrial posterior wall isolation 06/13. 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 History of short conversion pauses of 2-3 seconds. Hypertension . Bisoprolol 5 mg b.i.d., lisinopril 5 mg once daily. Hypothyroidism Diabetes. On metformin and glipizide. Obesity. CKD. Echo 05/13. EF normal. [id number] MR. Low risk nuclear stress test in 2020. Holter monitor 07/12: High burden of paroxysmal atrial fibrillation. Patient is here for follow-up. EKG performed today showed sinus rhythm. Patient monitors burden of atrial fibrillation through smart watch. Smart watch has not recorded any episodes of atrial fibrillation since ablation procedure. No chest pain. Chronic shortness of breath on exertion present which is stable. No significant lightheadedness. No syncopal episodes. No PND, orthopnea. Chronic lower extremity edema present which is stable. Past Medical History: Diagnosis Date A-fib ([facility]) Acid reflux Acquired hypothyroidism 03/15/2017 Anemia Arthritis Cancer ([facility]) breast Chronic pain disorder Cystitis Cystocele, midline 04/05/2016 February 20 017: Pop Q stage 1 anterior compartment prolapse Diabetes mellitus ([facility]) Diabetes mellitus type 2, controlled ([facility]) Diabetic polyneuropathy associated with type 2 diabetes mellitus ([facility]) 03/15/2017 Diarrhea Essential hypertension, benign 03/15/2017 Exocrine pancreatic insufficiency 01/28/2018 Gout History of chemotherapy 2011 History of radiation therapy 2011 Hyperlipidemia Hypertension Hypothyroid Joint pain Low back pain Mitral valve prolapse Paroxysmal atrial fibrillation ([facility]) 02/22/2015 Urethral stenosis 04/05/2016 February 20 017: Status post cystoscopy with urethral dilation March 23: Postvoid residual 12 cc. Urinary tract infection Venous insufficiency Visual impairment CONTACT RIGHT EYE Weakening of rectovaginal tissue 04/05/2016 February 20 017: Pop Q stage II posterior compartment prolapse No data recorded No data recorded No data recorded Past Surgical History: Procedure Laterality Date Afib ablation - PFA, OSMAR, ICE N/A 05/22/2024 Performed by Isa Mercado MD at [facility] () BREAST BIOPSY BREAST LUMPECTOMY Left COLONOSCOPY CYSTOSCOPY CYSTOSCOPY DILATATION URETHRAL with pelvic exam N/A 08/15/2019 Performed by Elisha Simpson MD at [facility] CYSTOSCOPY UOFM INSTILLATION N/A 01/01/2024 Performed by Wilmar Solo MD at [facility] EP Invasive N/A 05/22/2024 Performed by Isa Mercado MD at [facility] () HYSTERECTOMY INJECTION BLOCK NERVE: bilat cluneal Bilateral 06/22/2023 Performed by Pradeep Carolina MD at [facility] INJECTION BLOCK NERVE: bilat cluneal Bilateral 06/22/2023 Performed by Pradeep Carolina MD at [facility] INJECTION BLOCK NERVE: bilat cluneal Bilateral 01/19/2023 Performed by Pradeep Carolina MD at [facility] INJECTION BLOCK SACROILIAC JOINT Bilateral 09/08/2022 Performed by Pradeep Carolina MD at [facility] INJECTION BLOCK SACROILIAC JOINT Bilateral 02/03/2022 Performed by Pradeep Carolina MD at [facility] INJECTION BLOCK SACROILIAC JOINT Bilateral 10/28/2021 Performed by Pradeep Carolina MD at [facility] JOINT REPLACEMENT hip x2 LYMPH NODE BIOPSY MASTECTOMY Left 2011 OTHER SURGICAL HISTORY s/p tahbso 1996 TONSILLECTOMY 1974 TOTAL HIP ARTHROPLASTY Bilateral TUBAL LIGATION 1981 VARICOSE VEIN SURGERY Family History Problem Relation Age of Onset Diabetes Father Heart disease Father Early Father Mental illness Mother COPD Brother Kidney disease Brother Drug abuse Sister Ovarian cancer Sister Breast cancer Sister Social History Socioeconomic History Marital status: Spouse name: Not on file Number of children: Not on file Years of education: Not on file Highest education level: Not on file Occupational History Not on file Tobacco Use Smoking status: Never Smokeless tobacco: Never Vaping Use Vaping status: Never Used Substance and Sexual Activity Alcohol use: Yes Comment: 1 drink per week Drug use: No Sexual activity: Defer Partners: Male Other Topics Concern Caffeine Use Yes Social History Narrative Not on file Social Drivers of Health Financial Resource Strain: Low Risk (06/11/2022) Overall Financial Resource Strain (CARDIA) Difficulty of Paying Living Expenses: Not hard at all Food Insecurity: No Food Insecurity (06/25/2024) Hunger Screening Food Insecurity - Worry: Never True Food Insecurity - Inability: Never True Transportation Needs: No Transportation Needs (06/11/2022) PRAPARE - Transportation Lack of Transportation (Medical): No Lack of Transportation (Non-Medical): No Physical Activity: Not on file Stress: Not on file Social Connections: Not on file Interpersonal Safety: Not on file Housing Instability: Low Risk (06/11/2022) Housing Instability Housing Instability: No Review of Systems Review of Systems Constitutional: Negative for malaise/fatigue. HENT: Negative for nosebleeds. Respiratory: Positive for shortness of breath. Negative for cough and wheezing. Hematologic/Lymphatic: Does not bruise/bleed easily. Musculoskeletal: Positive for arthritis and joint pain. Negative for joint swelling, muscle cramps and muscle weakness. Gastrointestinal: Positive for constipation. Negative for bloating, abdominal pain, diarrhea, heartburn, hematochezia, nausea and vomiting. Genitourinary: Negative for hematuria. Neurological: Negative for dizziness, headaches and light-headedness. Vascular: Negative for claudication and lower extremity wounds or ulcers. CARDIOVASCULAR: Please review HPI. Physical Examination General appearance: Alert, oriented and cooperative. In no acute distress. Skin: Warm and dry to touch. Head: Normocephalic, without obvious abnormality, atraumatic. Ears, Nose, Mouth, Throat: Throat clear without erythema or exudate. Dentition intact. Eyes: Conjunctivae unremarkable, EOM intact. Neck: No JVD, No carotid bruit. Neck supple, trachea midline. Respiratory: Clear to auscultation bilaterally, no use of accessory muscles. Cardiovascular: RRR with normal S1 and S2 with no murmurs. Gastrointestinal: Soft, non-tender. Bowel sounds normal. Musculoskeletal: Lower extremity edema present. Neurologic: Oriented to time, person and place, affect appropriate. No focal/major motor defects noted. Psychiatric: Appropriate mood, memory and judgement. VITAL SIGNS: BP 98/50 Pulse 59 Ht 176.5 cm (5' 9.49 ) Wt 85.4 kg (188 lb 3.2 oz) SpO2 98% BMI 27.40 kg/m No orders of the defined types were placed in this encounter. There are no discontinued medications. IMPRESSIONS/PLAN 1. Paroxysmal atrial fibrillation ([facility]) - POCT EKG 1. Paroxysmal atrial fibrillation status post pulmonary vein isolation as well as left atrial posterior wall isolation using PFA 06/13 - maintaining sinus rhythm. - Not on antiarrhythmic therapy. - Continue with beta-tone therapy. - Continue Eliquis 5 mg b.I.d. for thromboembolic prophylaxis. 2. 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 3. History of hypertension: Blood pressure recorded today is low. Discontinue lisinopril. Continue to monitor blood pressure at home. EP follow-up in 6 months. TODAYS ORDERS Orders Placed This Encounter Procedures POCT EKG FOLLOW UP No follow-ups on file. PCP: HARSHAD ZAPATA MD Referring Physician: Shara Montesinos MD [id number] Provider retired 05/20/24 [place] [address] documented in this encounter [facility] 08-15-2024 Miscellaneous Notes Last OV 01/30/24 Last CBC 05/15/24.slm documented in this encounter [facility] 08-15-2024 Telephone encounter Note Last OV 01/30/24 Last CBC 05/15/24.slm [facility] 08-03-2024 Miscellaneous Notes OV 01/30/2024 documented in this encounter [facility] 08-03-2024 Telephone encounter Note OV 01/30/2024 [facility] 06-25-2024 History of Presen t illness Narrative [id number] [facility] [address] Patient: Ainsley Albright Date of : 1945 Encounter Date: 06/25/2024 History of Present Illness: The patient is a 78 y.o. female, an established patient, and is here for Chief Complaint Patient presents with Follow-up . No active complaints Pt had radio-ablation for A fib in May 2024 Follow-up Pertinent negatives include no abdominal pain, arthralgias, chest pain, chills, coughing, fever, rash, sore throat or vomiting. Problem List Items Addressed This Visit Paroxysmal atrial fibrillation (CMS-HCC) Essential hypertension Acquired hypothyroidism Diabetic polyneuropathy associated with type 2 diabetes mellitus (CMS-HCC) - Primary Relevant Medications pregabalin (LYRICA) 100 mg capsule GERD (gastroesophageal reflux disease) Ventricular tachycardia (CMS-HCC) Past Medical, Family, and Social History Update: The following portions of the patient's history were reviewed and updated as appropriate: allergies, current medications, past family history, past medical history, past social history, past surgical history and problem list. Past Medical History: Diagnosis Date A-fib (CMS-HCC) Acid reflux Acquired hypothyroidism 03/15/2017 Anemia Arthritis Cancer ([facility]) breast Chronic pain disorder Cystitis Cystocele, midline 04/05/2016 February 20 017: Pop Q stage 1 anterior compartment prolapse Diabetes mellitus ([facility]) Diabetes mellitus type 2, controlled ([facility]) Diabetic polyneuropathy associated with type 2 diabetes mellitus ([facility]) 03/15/2017 Diarrhea Essential hypertension, benign 03/15/2017 Exocrine pancreatic insufficiency 01/28/2018 Gout History of chemotherapy 2011 History of radiation therapy 2011 Hyperlipidemia Hypertension Hypothyroid Joint pain Low back pain Mitral valve prolapse Paroxysmal atrial fibrillation ([facility]) 02/22/2015 Urethral stenosis 04/05/2016 February 20 017: Status post cystoscopy with urethral dilation March 23 017: Postvoid residual 12 cc. Urinary tract infection Venous insufficiency Visual impairment CONTACT RIGHT EYE Weakening of rectovaginal tissue 04/05/2016 February 20 017: Pop Q stage II posterior compartment prolapse Past Surgical History: Procedure Laterality Date Afib ablation - PFA, OSMAR, ICE N/A 05/22/2024 Performed by Isa Mercado MD at [facility] ([facility]) BREAST BIOPSY BREAST LUMPECTOMY Left COLONOSCOPY CYSTOSCOPY CYSTOSCOPY DILATATION URETHRAL with pelvic exam N/A 08/15/2019 Performed by Elisha Simpson MD at [facility] CYSTOSCOPY UOFM INSTILLATION N/A 01/01/2024 Performed by Wilmar Solo MD at [facility] EP Invasive N/A 05/22/2024 Performed by Isa Mercado MD at [facility] ([facility]) HYSTERECTOMY INJECTION BLOCK NERVE: bilat cluneal Bilateral 06/22/2023 Performed by Pradeep Carolina MD at [facility] INJECTION BLOCK NERVE: bilat cluneal Bilateral 06/22/2023 Performed by Pradeep Carolina MD at [facility] INJECTION BLOCK NERVE: bilat cluneal Bilateral 01/19/2023 Performed by Pradeep Carolina MD at [facility] INJECTION BLOCK SACROILIAC JOINT Bilateral 09/08/2022 Performed by Pradeep Carolina MD at [facility] INJECTION BLOCK SACROILIAC JOINT Bilateral 02/03/2022 Performed by Pradeep Carolina MD at [facility] INJECTION BLOCK SACROILIAC JOINT Bilateral 10/28/2021 Performed by Pradeep Carolina MD at [facility] JOINT REPLACEMENT hip x2 LYMPH NODE BIOPSY MASTECTOMY Left 2011 OTHER SURGICAL HISTORY s/p tahbso 1996 TONSILLECTOMY 1974 TOTAL HIP ARTHROPLASTY Bilateral TUBAL LIGATION 1981 VARICOSE VEIN SURGERY Current Outpatient Medications Medication Sig Dispense Refill allopurinoL (ZYLOPRIM) 100 mg tablet TAKE ONE TABLET BY MOUTH EVERY MORNING 90 tablet 1 bisoprolol (ZEBETA) 5 mg tablet Take 1 tablet (5 mg total) by mouth in the morning and at bedtime. 180 tablet 3 blood sugar diagnostic ([employer] ULTRA TEST) strip USE ONE STRIP TO TEST DAILY, Diagnosis: E11.42 100 strip 3 blood-glucose meter [facility] One Touch Glucometer, Use daily, Diagnosis: E11.9 1 each 0 calcium carbonate-vitamin D3 600 mg calcium- 200 unit capsule Take 2 capsules by mouth in the morning. Takes 1200mg bid. ELIQUIS 5 mg tablet TAKE 1 TABLET BY MOUTH 2 TIMES A DAY (MORNING AND BEFORE BEDTIME) 180 tablet 0 furosemide (LASIX) 20 mg tablet Take 1 tablet (20 mg total) by mouth daily. 90 tablet 3 glimepiride (AMARYL) 1 mg tablet Take 1 tablet (1 mg total) by mouth every morning before breakfast. TAKE ONE TABLET BY MOUTH EVERY MORNING AND TAKE ONE TABLET BY MOUTH EVERY NIGHT BEFORE BEDTIME 180 tablet 3 lancets 30 gauge [facility] For use with One Touch, Test daily, Diagnosis: E11.9 100 each 3 levothyroxine (SYNTHROID, LEVOTHROID) 125 MCG tablet Take 1 tablet (125 mcg total) by mouth in the morning. 90 tablet 2 lisinopriL (PRINIVIL,ZESTRIL) 5 mg tablet TAKE 1 TABLET BY MOUTH EVERY MORNING 90 tablet 0 MAGNESIUM OXIDE/MAG AA CHELATE (MAGNESIUM, OXIDE/AA CHELATE, ORAL) Take 400 mg by mouth in the morning and 400 mg before bedtime. metFORMIN (GLUCOPHAGE) 1000 mg tablet Take 1 tablet (1,000 mg total) by mouth in the morning and 1 tablet (1,000 mg total) in the evening. Take with meals. TAKE ONE TABLET BY MOUTH EVERY MORNING AND TAKE ONE TABLET BY MOUTH EVERY NIGHT BEFORE BEDTIME. 180 tablet 3 methenamine (HIPREX) 1 gram tablet Take 1 tablet (1 g total) by mouth in the morning and 1 tablet (1 g total) before bedtime. Do all this for 360 days. 180 tablet 3 MULTIVIT-MINERALS/FERROUS FUM (MULTI VITAMIN ORAL) Take 1 tablet by mouth in the morning. omeprazole (PriLOSEC) 20 mg capsule TAKE ONE CAPSULE BY MOUTH EVERY MORNING 90 capsule 3 pregabalin (LYRICA) 100 mg capsule Take 1 capsule (100 mg total) by mouth in the morning and 1 capsule (100 mg total) before bedtime. 60 capsule 0 No current facility-administered medications for this visit. (All medications reviewed and updated by provider since last office visit or hospitalization) Allergies: Patient has no known allergies. Tobacco History: Social History Tobacco Use Smoking Status Never Smokeless Tobacco Never (If patient a smoker, smoking cessation counseling offered) Social History: Social History Substance and Sexual Activity Alcohol Use Yes Comment: 1 drink per week Review of Systems: Review of Systems Constitutional: Negative for chills and fever. HENT: Negative for ear pain and sore throat. Eyes: Negative for pain and visual disturbance. Respiratory: Negative for cough and shortness of breath. Cardiovascular: Negative for chest pain and palpitations. Gastrointestinal: Negative for abdominal pain and vomiting. Genitourinary: Negative for dysuria and hematuria. Musculoskeletal: Negative for arthralgias and back pain. Skin: Negative for color change and rash. Neurological: Negative for seizures and syncope. All other systems reviewed and are negative. Physical Exam: BP 114/62 Pulse 65 Resp 18 Wt 87.5 kg (193 lb) SpO2 97% BMI 28.09 kg/m Physical Exam Constitutional: Appearance: She is well-developed. HENT: Head: Normocephalic and atraumatic. Nose: Nose normal. Eyes: Pupils: Pupils are equal, round, and reactive to light. Cardiovascular: Rate and Rhythm: Normal rate and regular rhythm. Heart sounds: Normal heart sounds. No murmur heard. Pulmonary: Effort: Pulmonary effort is normal. No respiratory distress. Breath sounds: Normal breath sounds. No wheezing. Abdominal: General: Bowel sounds are normal. Palpations: Abdomen is soft. Tenderness: There is no abdominal tenderness. Musculoskeletal: General: Normal range of motion. Cervical back: Neck supple. Lymphadenopathy: Cervical: No cervical adenopathy. Skin: General: Skin is warm and dry. Findings: No rash. Neurological: Mental Status: She is alert and oriented to person, place, and time. Cranial Nerves: No cranial nerve deficit. Lab Results Component Value Date GLU 126 (H) 05/22/2024 CALCIUM 9.6 05/15/2024 SODIUM 137 05/15/2024 K 4.1 05/15/2024 CO2 30 05/15/2024 BUN 17 05/15/2024 CREATININE 1.02 (H) 05/15/2024 Lab Results Component Value Date WBC 4.7 05/15/2024 HGB 12.9 05/15/2024 HCT 39.0 05/15/2024 MCV 94 05/15/2024 PLT 175 05/15/2024 Lab Results Component Value Date HGBA1C 6.5 (H) 12/20/2023 Assessment and Plan: Ainsley was seen today for follow-up. Diagnoses and all orders for this visit: Diabetic polyneuropathy associated with type 2 diabetes mellitus ([facility]) - pregabalin (LYRICA) 100 mg capsule; Take 1 capsule (100 mg total) by mouth in the morning and 1 capsule (100 mg total) before bedtime. Paroxysmal atrial fibrillation (CMS-HCC) Heart rate normal. Continue bisoprolol and Eliquis Essential hypertension Blood pressure at goal. Continue lisinopril, bisoprolol and furosemide. Gastroesophageal reflux disease without esophagitis Stable. Continue omeprazole 20 mg once a day Acquired hypothyroidism Stable. Continue Synthroid 125 mcg once a day Ventricular tachycardia ([facility]) No further episodes. Diabetes mellitus type 2: HGB A1c at goal. Continue for glimepiride and metformin Follow-up: Return for Annual physical. HARSHAD ZAPATA MD documented in this encounter [facility] 05-19-2024 Miscellaneous Notes Patient called and said she thinks she might have a UTI. She is scheduled for a cardiac ablation on 05/22. She has already called cardiology for their recommendations as well and they advised she call urology. She has had a couple of UTI's recently and May recommended Methenamine which she has not started yet because she was worries about side effects and wanted to wait until after cardiac procedure. UA and UC ordered and patient will go leave a sample this morning. Symptoms: frequency, urgency, some discomfort in abdomen Noted, thank you. If the UA is positive, we can start an antibiotic while we wait for culture results. documented in this encounter [facility] 05-19-2024 Telephone encounter Note Patient called and said she thinks she might have a UTI. She is scheduled for a cardiac ablation on 05/22. She has already called cardiology for their recommendations as well and they advised she call urology. She has had a couple of UTI's recently and May recommended Methenamine which she has not started yet because she was worries about side effects and wanted to wait until after cardiac procedure. UA and UC ordered and patient will go leave a sample this morning. Symptoms: frequency, urgency, some discomfort in abdomen [facility] 05-19-2024 Telephone encounter Note Noted, thank you. If the UA is positive, we can start an antibiotic while we wait for culture results. [facility] 05-19-2024 Miscellaneous Notes Patient calls with question. She frequently gets UTIs. Last finished cefadoxil around 05/06 for a UTI. Was supposed to start methenamine-mitchell it sounds like for maintenance, but wanted to wait as she read it can have side effects and she is scheduled for afib ablation with VG on 05/22. She has been taking azo-cranberry instead. She now feels like she may be getting another UTI. She is wondering if the methenamine is safe to take before her ablation and if she needs to stop it at any point before. I advised her to call PCP/urology as soon as we hung up as they may want to test her for a UTI. Can ask [facility] about safeness of medication from our end, but she needs to follow up with PCP/urology for proper treatment. She v/u Okay to start that medication. No other recommendations. ML asking pt to call the office to discuss. Wanted to remind her to keep us posted on what PCP/urology says if she has another UTI as well as go over VG's response Pt called back to discuss to [facility]G response. Pt v/u and will call back with any response from her PCP and/or urology. [facility] Telephone encounter Note Patient calls with question. She frequently gets UTIs. Last finished cefadoxil around 05/06 for a UTI. Was supposed to start methenamine-mitchell it sounds like for maintenance, but wanted to wait as she read it can have side effects and she is scheduled for afib ablation with [facility]G on 05/22. She has been taking azo-cranberry instead. She now feels like she may be getting another UTI. She is wondering if the methenamine is safe to take before her ablation and if she needs to stop it at any point before. I advised her to call PCP/urology as soon as we hung up as they may want to test her for a UTI. Can ask [facility]G about safeness of medication from our end, but she needs to follow up with PCP/urology for proper treatment. [facility] Telephone encounter Note Okay to start that medication. No other recommendations. [facility] 05-19-2024 Telephone encounter Note ML asking pt to call the office to discuss. Wanted to remind her to keep us posted on what PCP/urology says if she has another UTI as well as go over VG's response [facility] 05-19-2024 Telephone encounter Note Pt called back to discuss to VG response. Pt v/u and will call back with any response from her PCP and/or urology. [facility] 05-13-2024 Miscellaneous Notes Last OV 01/30/24 CBC 06/26/23 BMP 12/18/23 documented in this encounter [facility] 05-13-2024 Telephone encounter Note Last OV 01/30/24 CBC 06/26/23 BMP 12/18/23 [facility] 04-22-2024 Miscellaneous Notes Patient called in stating Dr. Solo told her that if she got another Uti that he she should call onto the office and he would get her another medication for her UTI. She said last night she got sa real bad Uti and she wants to get it under control. She does not remember what medication he was talking about but he said it was a medication to take care of her uti she has a procedure coming up and she can't have an infection. She needs a urine culture 1st. Assuming that is positive we will treat her UTI and once that is completed we can start her on methenamine Patient was notified documented [facility] this encounter [facility] Telephone encounter Note Patient called in stating Dr. Solo told her that if she got another Uti that he she should call onto the office and he would get her another medication for her UTI. She said last night she got sa real bad Uti and she wants to get it under control. She does not remember what medication he was talking about but he said it was a medication to take care of her uti she has a procedure coming up and she can't have an infection. [facility]24 Telephone encounter Note She needs a urine culture 1st. Assuming that is positive we will treat her UTI and once that is completed we can start her on methenamine [employer] Work Phone: 04-22-2024 Telephone encounter Note [facility]24 Miscellaneous Notes Pt calls c/o burning and frequency. Heart rate was high on Sunday. They looked this up online. Order placed for urine culture. Pt will go today. Pt would like to start an ATB Allergies: [facility] Please let her know I sent cefadroxil to [facility]. She needs to give urine sample prior to starting antibiotics. Pt was notified. documented in this encounter [facility] 03-03-2024 Telephone encounter Note Pt calls c/o burning and frequency. Heart rate was high on Sunday. They looked this up online. Order placed for urine culture. Pt will go today. Pt would like to start an ATB Allergies: [facility] on file is [facility] 03-03-2024 Telephone encounter Note Please let her know I sent cefadroxil to [facility]. She needs to give urine sample prior to starting antibiotics. [facility] 03-03-2024 Telephone encounter Note [facility] was notified. [facility] Evaluation note Diagnosis Recurrent UTI- Primary Urinary tract infection, site not specified Overactive bladder Hypertonicity of bladder Paroxysmal atrial fibrillation (CMS-HCC)- Primary Atrial fibrillation Diabetic polyneuropathy associated with type 2 diabetes mellitus ([facility]) Paroxysmal atrial fibrillation ([facility]) Atrial fibrillation documented in this encounter [facility]* Diagnosis Recurrent UTI- Primary Urinary tract infection, site not specified Overactive bladder Hypertonicity of bladder Paroxysmal atrial fibrillation (CMS-HCC)- Primary Atrial fibrillation Burning with urination- Primary Dysuria Paroxysmal atrial fibrillation (CMS-HCC) Atrial fibrillation documented [facility] Diagnosis Recurrent UTI- Primary Urinary tract infection, site not specified Overactive bladder Hypertonicity of bladder Paroxysmal atrial fibrillation (CMS-HCC)- Primary Atrial fibrillation Essential hypertension, benign Paroxysmal atrial fibrillation (CMS-HCC) Atrial fibrillation documented in this encounter [facility] Diagnosis Recurrent UTI- Primary Urinary tract infection, site not specified Overactive bladder Hypertonicity of bladder Paroxysmal atrial fibrillation ([facility]-HCC)- Primary Atrial fibrillation Recurrent UTI- Primary Urinary tract infection, site not specified Paroxysmal atrial fibrillation ([facility]-HCC) Atrial fibrillation [facility]* Diagnosis Recurrent UTI- Primary Urinary tract infection, site not specified Overactive bladder Hypertonicity of bladder Paroxysmal atrial fibrillation ([facility]-HCC)- Primary Atrial fibrillation Diabetic polyneuropathy associated with type 2 diabetes mellitus ([facility]) Paroxysmal atrial fibrillation ([facility]) Atrial fibrillation documented [facility]* Diagnosis Recurrent UTI- Primary Urinary tract infection, site not specified Overactive bladder Hypertonicity of bladder Paroxysmal atrial fibrillation ([facility])- Primary Atrial fibrillation Paroxysmal atrial fibrillation ([facility]) Atrial fibrillation Paroxysmal atrial fibrillation ([facility]) Atrial fibrillation documented [facility]* Diagnosis Recurrent UTI- Primary Urinary tract infection, site not specified Overactive bladder Hypertonicity of bladder Paroxysmal atrial fibrillation ([facility])- Primary Atrial fibrillation Recurrent UTI- Primary Urinary tract infection, site not specified Paroxysmal atrial fibrillation ([facility]) Atrial fibrillation documented [facility]* Diagnosis Recurrent UTI- Primary Urinary tract infection, site not specified Overactive bladder Hypertonicity of bladder Diabetic polyneuropathy associated with type 2 diabetes mellitus ([facility]) documented [facility]* Diagnosis Recurrent UTI- Primary Urinary tract infection, site not specified Overactive bladder Hypertonicity of bladder Diabetic polyneuropathy associated with type 2 diabetes mellitus ([facility])- Primary Paroxysmal atrial fibrillation ([facility]) Atrial fibrillation Essential hypertension Unspecified essential hypertension Gastroesophageal reflux disease without esophagitis Esophageal reflux Acquired hypothyroidism Unspecified hypothyroidism Ventricular tachycardia ([facility]) Paroxysmal ventricular tachycardia [facility]* Diagnosis Recurrent UTI- Primary Urinary tract infection, site not specified Overactive bladder Hypertonicity of bladder Essential hypertension, benign Diabetes mellitus without complication ([facility]) Type II or unspecified type diabetes mellitus without mention of complication, not stated as uncontrolled Acquired hypothyroidism Unspecified hypothyroidism documented [facility]* Diagnosis Recurrent UTI- Primary Urinary tract infection, site not specified Overactive bladder Hypertonicity of bladder Diabetic polyneuropathy associated with type 2 diabetes mellitus (CMS-HCC) [facility] Diagnosis Recurrent UTI- Primary Urinary tract infection, site not specified Overactive bladder Hypertonicity of bladder Paroxysmal atrial fibrillation (CMS-HCC) Atrial fibrillation [facility] Diagnosis Recurrent UTI- Primary Urinary tract infection, site not specified Overactive bladder Hypertonicity of bladder Diabetic polyneuropathy associated with type 2 diabetes mellitus (CMS-HCC) [facility] Diagnosis Recurrent UTI- Primary Urinary tract infection, site not specified Overactive bladder Hypertonicity of bladder Paroxysmal atrial fibrillation (CMS-HCC)- Primary Atrial fibrillation [facility] Diagnosis Recurrent UTI- Primary Urinary tract infection, site not specified Overactive bladder Hypertonicity of bladder Diabetic polyneuropathy associated with type 2 diabetes mellitus (CMS-HCC) [facility] Diagnosis Recurrent UTI- Primary Urinary tract infection, site not specified Overactive bladder Hypertonicity of bladder Diabetic polyneuropathy associated with type 2 diabetes mellitus (CMS-HCC) [facility] Diagnosis Recurrent UTI- Primary Urinary tract infection, site not specified Overactive bladder Hypertonicity of bladder Paroxysmal atrial fibrillation (CMS-HCC)- Primary Atrial fibrillation Exertional dyspnea Other dyspnea and respiratory abnormality [facility] filedocumented in this [facility] filedocumented in this [facility] on filedocumented in this [facility] on filedocumented in this encounter [facility] on filedocumented in this encounter [facility] filedocumented in this encounter [facility] on filedocumented in this encounter [facility] on filedocumented in this encounter [facility] on filedocumented in this encounter [facility] Summary Purpose Family History No Family History Records FoundNo Family History Records FoundNo Family History Records FoundNo Family History Records Found Advance Directives No Advanced Directives Records FoundDocuments on File Type Date Recorded Patient Ec Teacher Expl anation Living Will 12/04/2019 9:41 AM [facility] 09/24/2010 Documents on File Type Date Recorded Patient Ec Teacher Fide pittman Living Will 12/04/2019 9:41 AM [facility] 09/24/2010 Additional Source Comments INFORMATION SOURCE (unrecogn ized section and content) DATE CREATED AUTHOR 01/21/2018 [facility] DATE CREATED AUTHOR AUTHOR'S ORGANIZ ATION 06/28/2024 [facility] DATE CREATED AUTHOR AUTHOR'S ORGANIZ ATION 08/30/2024 [facility] DATE CREATED AUTHOR AUTHOR'S ORGANIZ ATION 11/29/2024 [facility] Reason for Visit (unrecogniz ed section and content) Reason Onset Date Comments Med Refill 02/27/2024 Reason Onset Date Comments Med Refill 03/10/2024 Reason Onset Date Comments Med Refill 03/25/2024 Reason Onset Date Comments Med Refill 04/02/2024 Reason Onset Date Comments Med Refill 04/10/2024 Reason Onset Date Comments Med Refill 04/28/2024 Reason Onset Date Comments Med Refill 04/30/2024 Reason Comments Med Refill Reason Onset Date Comments methenamine 05/19/2024 Reason Onset Date Comments Med Refill 05/27/2024 Reason Comments Follow-up Reason Onset Date Comments Med Refill 07/28/2024 Reason Onset Date Comments Med Refill 08/15/2024 Reason Onset Date Comments Med Refill 08/25/2024 Reason Comments Follow-up ov s/p abln 05/22/24 T TH-VG héctor w pt Reason Onset Date Comments Med Refill 09/24/2024 Reason Onset Date Comments Med Refill 10/27/2024 Reason Comments Pre-op Exam PRE OP DENTAL PROCED URE DR BENNETT SCHED W/ PT NO TESTS, FORM SCANNED TO MEDIA Care Teams (unrecognized sec tion and content) Residential Door Unit Installer Relationship Specialty Start Date End Date Shara Montesinos MD [address] [place] [address] PCP - General Family Medicine 01/26/16 Residential Door Unit Installer Relationship Specialty Start Date End Date Shara Montesinos MD [address] [place] [address] PCP - General Family Medicine 01/26/16 Residential Door Unit Installer Relationship Specialty Start Date End Date Shara Montesinos MD [address] [place] [address] PCP - General Family Medicine 01/26/16 Residential Door Unit Installer Relationship Specialty Start Date End Date Shara Montesinos MD [address] [place] [address] PCP - General Family Medicine 01/26/16 Residential Door Unit Installer Relationship Specialty Start Date End Date Shara Montesinos MD [address] [place] [address] PCP - General Family Medicine 01/26/16 Residential Door Unit Installer Relationship Specialty Start Date End Date Shara Montesinos MD [address] [place] [address] PCP - General Family Medicine 01/26/16 Residential Door Unit Installer Relationship Specialty Start Date End Date Shara Montesinos MD [address] [place] [address] PCP - General Family Medicine 01/26/16 Residential Door Unit Installer Relationship Specialty Start Date End Date Shara Montesinos MD [address] [place] [address] PCP - General Family Medicine 01/26/16 Residential Door Unit Installer Relationship Specialty Start Date End Date Shara Montesinos MD [address] Provider retired 05/20/24 [place] [address] PCP - General Family Medicine 01/26/16 Residential Door Unit Installer Relationship Specialty Start Date End Date Shara Montesinos MD [address] [place] [address]. Provider retired 05/20/24 [place] [address] PCP - General Family Medicine 01/26/16 Residential Door Unit Installer Relationship Specialty Start Date End Date Harshad Zapata MD [address] [place] [id number] PCP - General Internal Medicine 06/25/24 Residential Door Unit Installer Relationship Specialty Start Date End Date Harshad Zapata MD [address] [place] [id number] PCP - General Internal Medicine 06/25/24 Residential Door Unit Installer Relationship Specialty Start Date End Date Harshad Zapata MD [address] [place] [id number] PCP - General Internal Medicine 06/25/24 Residential Door Unit Installer Relationship Specialty Start Date End Date Harshad Zapata MD [address] [place] [id number] PCP - General Internal Medicine 06/25/24 Residential Door Unit Installer Relationship Specialty Start Date End Date Harshad Zapata MD [address] [place] [id number] PCP - General Internal Medicine 06/25/24 Residential Door Unit Installer Relationship Specialty Start Date End Date Harshad Zapata MD [address] [place] [id number] PCP - General Internal Medicine 06/25/24 Residential Door Unit Installer Relationship Specialty Start Date End Date Harshad Zapata MD [address] [place] [id number] PCP - General Internal Medicine 06/25/24 Residential Door Unit Installer Relationship Specialty Start Date End Date Harshad Zapata MD [address] [place] [id number] PCP - General Internal Medicine 06/25/24 Residential Door Unit Installer Relationship Specialty Start Date End Date Harshad Zapata MD [address] [place] [id number] PCP - General Internal Medicine 06/25/24 Residential Door Unit Installer Relationship Specialty Start Date End Date Harshad Zapata MD [address] [place] [id number] PCP - General Internal Medicine 06/25/24 Residential Door Unit Installer Relationship Specialty Start Date End Date Harshad Zapata MD [address] [place] [id number] PCP - General Internal Medicine 06/25/24 Residential Door Unit Installer Relationship Specialty Start Date End Date Harshad Zapata MD [address] [place] [id number] PCP - General Internal Medicine 06/25/24 FOR RECORDS PERTAINING TO PATIENTS WHO ARE OR HAVE BEEN ENROLLED IN A CHEMICAL DEPENDENCY/SUBSTANCEABUSE PROGRAM, SOME INFORMATION MAY BE OMITTED. This clinical summary was aggregated from multiple sources. Caution should be exercised in using it in the provision of clinical care. This summary normalizes information from multiple sources, and as a consequence, information in this document may materially change the coding, format and clinical context of patient data. In addition, data may be omitted in some cases. CLINICAL DECISIONS SHOULD BE BASED ON THE PRIMARY CLINICAL RECORDS. [employer] [facility]. provides no warranty or guarantee of the accuracy or completeness of information in this document.
--- NOTE | 2024-12-01 12:00 | MM_ITS ---
Patient Name: LUCY ALBRIGHT MR#: [id number] : 1945 Exam Date: 12/01/2024 Ordering Doctor: DR SHARA OWENS RADIOLOGY REPORT PROCEDURE: MM TOMOSYNTHESIS SCREENING RT COMPARISON: MM TOMOSYNTHESIS SCREENING RT, 11/29/2023. MM TOMOSYNTHESIS SCREENING RT, 11/27/2022. MG MAMM SCREEN RT 3D CAD, 11/24/2021. MG MAMM SCREEN RT 3D CAD, 11/18/2020. INDICATIONS: Screening Calculator Name NCI Breast Cancer Risk Assessment Tool 5 Year Breast Cancer Risk n/a% Lifetime Breast Cancer Risk n/a% Personal Breast Cancer Yes, 67, Left Personal Ovarian Cancer No Treatments Left mastectomy Family Cancers Sister with breast cancer at age 62; Son with kidney cancer at age 4; Daughter with cervical cancer at age 44. LOCATION: [facility] BREAST COMPOSITION: The breasts are heterogeneously dense, which may obscure small masses. FINDINGS: DIAGNOSTIC CATEGORY 1--NEGATIVE. RIGHT BREAST: No significant suspicious finding. RECOMMENDATIONS: ROUTINE MAMMOGRAM AND CLINICAL EVALUATION IN 12 MONTHS. Dictated by: Yao Roque MD on 12/01/2024 at 15:28 Approved by: Yao Roque MD on 12/01/2024 at 15:29
== END 2024-12-01 11:29 | disposition home or self-care (01) ==
LOC: MAMMO 11:29
PROVIDERS: PCP Family Medicine; Visit Provider Family Medicine
DX: Z12.31 Encounter for screening mammogram for malignant neoplasm of breast (principal); Z80.3 Family history of malignant neoplasm of breast; Z80.51 Family history of malignant neoplasm of kidney; Z80.8 Family history of malignant neoplasm of other organs or systems
CPT/HCPCS: 77063; 77067